=== PATIENT | male | born 1950 | race Caucasian/White ===

== ENCOUNTER 2019-09-06 14:23 | Emergency (ER) | payer MEDICARE, SELFPAY ==
[2019-09-06] VITALS (8 sets, daily range): BP systolic 125–177; BP diastolic 73–81; PULSE 73–84; RESP 14–24; TEMP 36.3–36.7; O2SAT 94–97
--- NOTE | ~2019-09-06 | XR_ITS ---
EXAMINATION: XR chest 2V DATE: 09/06/2019 15:07 INDICATION: Generalized chest pain, cough and shortness of breath TECHNIQUE: PA and lateral views of the chest were obtained. COMPARISON: Chest radiograph dated 05/01/[address] dated 06/25/2019 FINDINGS: Emphysema with hyperexpansion of lungs with increased lucency and architectural distortion in the upp er lung zones. Unchanged opacities corresponding to atelectasis/scarring at the anterolateral aspect of the left upper lung zone. Additional unchanged opacities in the lower lung zones on the frontal pr ojection resulting from bilateral paracardial fat pads better appreciated on the lateral projection. Remainder of the lungs are clear. No pulmonary edema, pleural effusion or pneumothorax. Heart size is normal. Median sternotomy wires, ostial markers and mediastinal surgical clips consistent with prior coronary artery bypass grafting. Retained epicardial pacemaker leads. Mild thoracic spondylosis. IMPRESSION: 1. Severe emphysema. 2. Stable appearance of chronic atelectasis/scarring at the left upper lung zone. Reviewed, dictated and finalized at location A. RONI MAKER IMPRESSION: 1. Severe emphysema. 2. Stable appearance of chronic atelectasis/scarring at the left upper lung zon e.
--- NOTE | 2019-09-06 14:24 | ECG_ITS ---
Measurements Intervals [place] Rate: 99 P: 96 SD: 151 QRS: 201 QRSD: 106 T: 110 QT: 324 QTc: 416 Interpretive Statements SINUS RHYTHM LIMB LEAD REVERSAL BASELINE ARTIFACT- I, II, III, AVL, AVF, V3-V6 ATYPICAL ECG Electronically Signed On 09-06-2019 16:17:55 [employer] by Anthony Redman D.O.
--- NOTE | 2019-09-06 14:46 | ED.CHESTPAIN ---
HPI - Chest Pain General Chief Complaint: Chest Pain Stated Complaint: chest pains, SOB Time Seen by Provider: 09/06/19 14:45 History of Present Illness HPI narrative: Pt is a 69 y/o male presenting to the ED c/o CP. Pt reports he started experiencing CP earlier today. Pt also reports chronic SOB and chronic cough due to a Hx of COPD, but states they have both worsened today. 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 Pt states he does have a nebulizer at home, but denies taking steroid therapy. 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 Funez no DM thyroid problems NE HTN HLD CABG no smokes Related Data Home Medications Medication Instructions Recorded Confirmed acetaminophen 325 mg capsule 325 mg PO Q6H PRN 06/12/19 arformoterol 15 mcg/2 mL solution 2 ml INHALATION DAILY 06/12/19 for nebulization budesonide 0.5 mg/2 mL suspension 0.5 mg INHALATION DAILY 06/12/19 for nebulization buspirone 15 mg tablet 15 mg PO BID 06/12/19 entecavir 0.5 mg tablet 0.5 mg PO DAILY 06/12/19 lisinopril 10 mg tablet 10 mg PO DAILY 06/12/19 sertraline 100 mg tablet 100 mg PO DAILY 06/12/19 zolpidem 10 mg tablet PO 06/12/19 Allergies Allergy/AdvReac Type Severity Reaction Status Date / Time Penicillins Allergy Mild Rash Verified 06/15/19 13:17 PMFSH Family History Family History (Updated 06/15/19 @ 13:21 by Sarah Esteban CMA) Son Heart disease Social History Social History (Updated 06/15/19 @ 13:18 by Sarah Esteban CMA) Smoking status: Former smoker Exam Narrative: Exam Narrative: General appearance: Well-developed, well-nourished Skin: Normal color Head: Normocephalic, nontraumatic Eyes: Clear conjunctiva ENT: Oropharynx normal, ears normal, nose normal Neck: Supple, nontender Chest and respiratory: Airway patent, mild respiratory distress, no accessory muscle, slight diminution of air entry bilaterally, scattered rhonchi and wheezing Heart: Regular rate/rhythm Abdomen: Soft, nontender, no organomegaly, quiet bowel sounds Vascular: Normal peripheral pulses, normal capillary refill. 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 Labs, chest x-ray, breathing treatment, Solu-Medrol 125 mg IV ordered. Further plan to follow Lab Data Result diagrams: 09/06/19 15:27 09/06/19 14:43 Labs: Lab Results 09/06/19 09/06/19 09/06/19 Range/Units 14:43 14:43 14:43 WBC 6.1 (4.5-10.0) K/mm3 RBC 4.39 L (4.6-6.20) M/mm3 Hgb 13.5 L (14.0-18.0) g/dL Hct 43.4 (42.0-52.0) % MCV 98.9 (80-100) fl MCH 30.8 (26-34) pg MCHC 31.1 L (32-36) g/dl RDW 15.4 H (11.5-14.5) % Plt Count 117 L (150-375) k/mm3 MPV 12.0 H (7.4-10.4) fl Immature Gran % (Auto) 0.5 (0-0.5) % Neut % (Auto) 71.7 (45.5-73.1) % Lymph % (Auto) 18.1 L (18.3-44.2) % Thomas % (Auto)
[2019-09-06 14:59] LABS: Basophils Percent Auto 0.5 % (0.2-1.2); Eosinophils Absolute Auto 0.1 K/mm3 (0-0.3); Hematocrit 43.4 % (42.0-52.0); Hemoglobin 13.5 g/dL (14.0-18.0); Immature Granulocyte Absolute 0.03 K/mm3 (0.00-0.031); Immature Granulocyte Percent A 0.5 % (0-0.5); Immature Platelet Fraction Pct 6.9 % (0.9-11.2); Lymphocytes Percent Auto 18.1 % (18.3-44.2); Mean Corpuscular HGB Conc 31.1 g/dl (32-36); Mean Corpuscular Hemoglobin 30.8 pg (26-34); Mean Corpuscular Volume 98.9 fl (80-100); Monocytes Absolute Auto 0.4 K/mm3 (0.1-0.6); Monocytes Percent Auto 7.2 % (2.6-8.5); Neutrophils Absolute Auto 4.4 K/mm3 (1.3-6.7); Neutrophils Percent Auto 71.7 % (45.5-73.1); Platelet Count Result 117 k/mm3 (150-375); Red Blood Count 4.39 M/mm3 (4.6-6.20); Red Cell Distribution Width 15.4 % (11.5-14.5); White Blood Count 6.1 K/mm3 (4.5-10.0)
[2019-09-06 15:06] LABS: INR 0.9; Prothrombin Time 11.7 Seconds (11.1-14.7)
[2019-09-06 15:07] LABS: Partial Thromboplastin Time 26.1 SECONDS (22.3-36.8)
[2019-09-06 15:09] LABS: Blood Urea Nitrogen 16 mg/dL (9-20); Calcium 9.3 mg/dL (8.4-10.2); Carbon Dioxide 30 mmol/L (22-30); Chloride 96 mmol/L (98-107); Estimated CRCL calculation 75 ml/min; Estimated Glomerular Filt Rate > 60; Glucose 189 mg/dL (75-110); Potassium 5.4 mmol/L (3.4-5.0); Sodium 139 mmol/L (137-145)
[2019-09-06 15:22] LABS: Troponin I < 0.012 ng/mL (0.000-0.034)
[2019-09-06] MEDS: IPRATROPIUM BR 0.02% INH SOLN 0.5 MG/2.5 ML VIAL INHALATION (15:32)
[2019-09-06] MEDS: ALBUTEROL SULFATE NEB 2.5 MG/0.5 ML INH 5 MG INHALATION (15:32)
[2019-09-06 15:33] LABS: Basophils Percent Auto 0.5 % (0.2-1.2); Eosinophils Absolute Auto 0.1 K/mm3 (0-0.3); Eosinophils Percent Auto 2.1 % (0-4.4); Hematocrit 41.2 % (42.0-52.0); Hemoglobin 12.7 g/dL (14.0-18.0); Immature Granulocyte Absolute 0.03 K/mm3 (0.00-0.031); Immature Granulocyte Percent A 0.5 % (0-0.5); Immature Platelet Fraction Pct 6.8 % (0.9-11.2); Lymphocytes Absolute Auto 0.73 K/mm3 (0.9-3.2); Mean Corpuscular HGB Conc 30.8 g/dl (32-36); Mean Corpuscular Hemoglobin 30.5 pg (26-34); Mean Platelet Volume 11.4 fl (7.4-10.4); Monocytes Absolute Auto 0.4 K/mm3 (0.1-0.6); Monocytes Percent Auto 7.1 % (2.6-8.5); Neutrophils Absolute Auto 4.7 K/mm3 (1.3-6.7); Neutrophils Percent Auto 77.8 % (45.5-73.1); Platelet Count Result 112 k/mm3 (150-375); Red Blood Count 4.16 M/mm3 (4.6-6.20); Red Cell Distribution Width 15.3 % (11.5-14.5); White Blood Count 6.1 K/mm3 (4.5-10.0)
[2019-09-06 15:38] LABS: Alveolar/Arterial O2 Gradient 36.7 mmHg; Base Excess ABG 2.3 mEq/l (+/-2.0); Carboxyhemoglobin 0.4 % THb (0-2.0); Device NASAL CANNULA; Fractional Inspired Oxygen 24 %; HCO3 ABG 28.5 mEq/l (22.0-26.0); Methemoglobin ABG 0.2 %THb (0-1.5); Modified Allen's Test Pass; Oxygen Content ABG 18.1 %vol (16.0-22.0); Oxygen Saturation ABG 94.3 % (95.0-100.0); Oxyhemoglobin 94.3 % THb (90.0-100.0); PCO2 ABG 50.6 mmHg (35.0-45.0); PO2 ABG 74.2 mmHg (80.0-100.0); PO2 FiO2 Ratio Arterial Blood 3.09 %; Reduced Hemoglobin 5.1 %THb (0-5.0); Site Drawn LEFT RADIAL; Total Hemoglobin 13.6 g/dL (12.0-18.0); pH ABG 7.368 (7.350-7.450)
[2019-09-06] MEDS: methylPREDNISolone SOD SUCC 125 MG VIAL IV PUSH (16:17)
[2019-09-06 17:58] LABS: Troponin I < 0.012 ng/mL (0.000-0.034)
== END 2019-09-06 18:34 | disposition home or self-care (01) ==
PROVIDERS: Emergency Medicine; Emergency Provider Emergency Medicine; PCP Internal Medicine
DX: J44.9 Chronic obstructive pulmonary disease, unspecified (principal); Z87.891 Personal history of nicotine dependence
CPT/HCPCS: 36415; 36600; 71046; 80048; 82375; 82805; 83050; 84484; 85025; 85055; 85610; 85730; 87804; 93005; 94640; 96374; 99284; J2930

== ENCOUNTER 2019-10-04 15:05 | Outpatient (CLI) | payer MEDICARE, SELFPAY ==
[2019-10-04 15:49] LABS: Basophils Percent Auto 0.4 % (0.2-1.2); Eosinophils Percent Auto 0.4 % (0-4.4); Hematocrit 37.8 % (42.0-52.0); Hemoglobin 11.6 g/dL (14.0-18.0); Immature Granulocyte Absolute 0.08 K/mm3 (0.00-0.031); Immature Granulocyte Percent A 1.1 % (0-0.5); Immature Platelet Fraction Pct 6.5 % (0.9-11.2); Lymphocytes Absolute Auto 1.31 K/mm3 (0.9-3.2); Lymphocytes Percent Auto 17.4 % (18.3-44.2); Mean Corpuscular HGB Conc 30.7 g/dl (32-36); Mean Corpuscular Hemoglobin 30.3 pg (26-34); Mean Corpuscular Volume 98.7 fl (80-100); Mean Platelet Volume 11.6 fl (7.4-10.4); Monocytes Absolute Auto 0.5 K/mm3 (0.1-0.6); Monocytes Percent Auto 6.1 % (2.6-8.5); Neutrophils Absolute Auto 5.6 K/mm3 (1.3-6.7); Neutrophils Percent Auto 74.6 % (45.5-73.1); Platelet Count Result 135 k/mm3 (150-375); Red Blood Count 3.83 M/mm3 (4.6-6.20); Red Cell Distribution Width 14.8 % (11.5-14.5); White Blood Count 7.5 K/mm3 (4.5-10.0)
[2019-10-04 15:57] LABS: INR 0.9; Prothrombin Time 11.6 Seconds (11.1-14.7)
[2019-10-04 16:00] LABS: Alanine Aminotransferase 28 U/L (4-50); Albumin Level 4.2 g/dL (3.5-5.1); Alkaline Phosphatase 84 U/L (38-126); Aspartate Amino Transferase 31 U/L (17-59); Bilirubin,Total 0.4 mg/dL (0.2-1.3); Blood Urea Nitrogen 18 mg/dL (9-20); Carbon Dioxide 31 mmol/L (22-30); Chloride 97 mmol/L (98-107); Cholesterol 138 mg/dL (0-200); Estimated Glomerular Filt Rate > 60; Glucose 223 mg/dL (75-110); HDL Direct 47 mg/dL; Potassium 4.6 mmol/L (3.4-5.0); Sodium 138 mmol/L (137-145); Triglycerides 146 mg/dL (<150)
[2019-10-04 16:11] LABS: LDL Cholesterol Direct 76 mg/dL
[2019-10-04 16:31] LABS: Prostate Specific Antigen 0.7 ng/mL (< OR = 4.0)
[2019-10-04 16:35] LABS: Hepatitis B Surface Antigen Positive (Negative)
[2019-10-04 17:05] LABS: Hepatitis B Surface Anti Res Negative
[2019-10-07 10:07] LABS: Hepatitis B DNA PCR <1.00 Log IU/mL; Hepatitis B DNA PCR <10 IU/mL
[2019-10-09 05:52] LABS: Alpha-1-Antitrypsin, QN 189 mg/dL (83-199)
== END 2019-10-04 15:06 | disposition home or self-care (01) ==
LOC: ANHLAB 15:15
PROVIDERS: Internal Medicine Gastroenterology; PCP Internal Medicine; Visit Provider Internal Medicine
DX: E78.5 Hyperlipidemia, unspecified (principal); Z12.5 Encounter for screening for malignant neoplasm of prostate; I10 Essential (primary) hypertension; Z79.899 Other long term (current) drug therapy; C22.0 Liver cell carcinoma; B18.1 Chronic viral hepatitis B without delta-agent
CPT/HCPCS: 36415; 80053; 80061; 82103; 84153; 85025; 85055; 85610; 86706; 87340; 87517; G0103

== ENCOUNTER 2019-10-15 15:54 | Emergency (ER) | payer MEDICARE, SELFPAY ==
--- NOTE | ~2019-10-15 | XR_ITS ---
EXAMINATION: XR chest 2V DATE: 10/15/2019 17:02 INDICATION: Shortness of breath, chest pressure TECHNIQUE: PA and lateral views of the chest are obtained. COMPARISON: 09/06/2019 FINDINGS: The lungs are hyperinflated. There are chronic areas of scarring in the left lung. A patchy opacity is seen in the left lung apex. The heart size is normal. There is no pleural effusion or pne umothorax. Median sternotomy wires and mediastinal surgical clips are seen, likely from prior coronar y artery bypass grafting. There is moderate thoracic spondylosis. IMPRESSION: 1. Patchy opacity of the left upper lobe, consistent with atelectasis versus pneumonia. Reviewed, dictated and finalized at location A. IMPRESSION: 1. Patchy opacity of the left upper lobe, consistent with atelectasis versus pn eumonia.
--- NOTE | 2019-10-15 16:08 | ECG_ITS ---
Measurements Intervals [place] Rate: 80 P: 49 AR: 154 QRS: -17 QRSD: 98 T: 79 QT: 341 QTc: 395 Interpretive Statements SINUS RHYTHM DELAYED PRECORDIAL R/S TRANSITION BORDERLINE ST-T WAVE ABNORMALITY- LATERAL LEADS BASELINE ARTIFACT- I, II, III, AVR, AVL, AVF, V6 BORDERLINE ECG Electronically Signed On 10-15-2019 17:05:39 CDT by Anthony Redman D.O.
--- NOTE | 2019-10-15 16:13 | ED.GENADULT ---
HPI - General Adult General Stated complaint: difficulty breathing Time Seen by Provider: 10/15/19 16:13 Related Data Home Medications Medication Instructions Recorded Confirmed acetaminophen 325 mg capsule 325 mg PO Q6H PRN 06/12/19 arformoterol 15 mcg/2 mL solution 2 ml INHALATION DAILY 06/12/19 for nebulization budesonide 0.5 mg/2 mL suspension 0.5 mg INHALATION DAILY 06/12/19 for nebulization buspirone 15 mg tablet 15 mg PO BID 06/12/19 entecavir 0.5 mg tablet 0.5 mg PO DAILY 06/12/19 sertraline 100 mg tablet 100 mg PO DAILY 06/12/19 zolpidem 10 mg tablet PO 06/12/19 Allergies Allergy/AdvReac Type Severity Reaction Status Date / Time Penicillins Allergy Mild Rash Verified 06/15/19 13:17 [facility] Family History Family History (Updated 06/15/19 @ 13:21 by Sarah Esteban CMA) Son Heart disease Social History Social History (Updated 06/15/19 @ 13:18 by Sarah Esteban CMA) Smoking status: Former smoker Discharge Plan Discharge Prescriptions: No Action buspirone 15 mg tablet 15 mg PO BID RF: 0 entecavir 0.5 mg tablet 0.5 mg PO DAILY RF: 0 sertraline 100 mg tablet 100 mg PO DAILY RF: 0 acetaminophen [Tylenol] 325 mg capsule 325 mg PO Q6H PRNRF: 0 zolpidem 10 mg tablet PO RF: 0 Brovana 15 mcg/2 mL solution for nebulization 2 ml INHALATION DAILY RF: 0 budesonide 0.5 mg/2 mL suspension for nebulization 0.5 mg INHALATION DAILY RF: 0 albuterol sulfate 2.5 mg /3 mL (0.083 %) solution for nebulization 2.5 mg INHALATION Q4-6H PRN (Reason: shortness of breath or wheezing) Qty: 180 RF: 3 atorvastatin 80 mg tablet 80 mg PO DAILY Qty: 90 RF: 1 ipratropium bromide 0.02 % solution 2.5 ml INHALATION QID Qty: 300 RF: 3 albuterol sulfate [ProAir HFA] 90 mcg/actuation HFA aerosol inhaler 2 inhalation INHALATION Q4-6H PRN (Reason: shortness of breath or wheezing) Qty: 8.5 RF: 3 prednisone 20 mg tablet 40 mg PO DAILY Qty: 10 RF: 0 azithromycin [Zithromax Z-Milton] 250 mg tablet 250 mg PO DIRECTED Qty: 6 RF: 0 lisinopril 10 mg tablet 10 mg PO DAILY Qty: 90 RF: 1
--- NOTE | 2019-10-15 16:21 | ED.SOB ---
HPI - SOB/Dyspnea General Chief Complaint: Shortness of Breath/Dyspnea Stated Complaint: difficulty breathing Time Seen by Provider: 10/15/19 16:18 Source: patient Mode of arrival: ambulatory Limitations: no limitations History of Present Illness HPI Narrative: A 69 y/o male, with a PMHx of COPD, presents to the ED with c/o increased SOB. Pt states that Dr. Funez prescribed him Prednisone and Erythromycin at the beginning of the month. This alleviated the pt's SOB for a few days, but his symptoms have worsened since. Pt is normally on 2L of oxygen. He denies a cough, fever, chills, and any urinary problems. Pertinent past history: COPD Timing: progressively worsening Known history of: COPD Related Data Home Medications Medication Instructions Recorded Confirmed acetaminophen 325 mg capsule 325 mg PO Q6H PRN 06/12/19 arformoterol 15 mcg/2 mL solution 2 ml INHALATION DAILY 06/12/19 for nebulization budesonide 0.5 mg/2 mL suspension 0.5 mg INHALATION DAILY 06/12/19 for nebulization buspirone 15 mg tablet 15 mg PO BID 06/12/19 entecavir 0.5 mg tablet 0.5 mg PO DAILY 06/12/19 sertraline 100 mg tablet 100 mg PO DAILY 06/12/19 zolpidem 10 mg tablet PO 06/12/19 Allergies Allergy/AdvReac Type Severity Reaction Status Date / Time Penicillins Allergy Mild Rash Verified 06/15/19 13:17 Review of Systems Review of Systems: All systems reviewed & are unremarkable except as noted in HPI and below Constitutional: Constitutional: Denies chills and Denies fever(s) Respiratory: Respiratory: Denies cough and Reports dyspnea Genitourinary: Comments: Denies: urinary problems [facility] Past Medical History Medical History 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 Anxiety Arthritis Back pain Bronchitis CAD (coronary artery disease) Cirrhosis Depression GERD (gastroesophageal reflux disease) Hepatitis B History of blood transfusion History of chemotherapy HLD (hyperlipidemia) HTN (hypertension) Kidney stone Leg fracture, left Liver tumor Pneumonia Rectal polyp Sinus problem Sleep apnea Surgical History Surgical History H/O hemorrhoidectomy H/O inguinal hernia repair History of cardiac cath History of carpal tunnel release and ulnar release Hx of CABG x3 Family History Family History Son Heart disease Social History Social History Smoking status: Former smoker Comments PSHx: left leg Fx repair PCP: Dr. Fallon Exam Narrative: Exam Narrative: GENERAL: Well-appearing, well-nourished, and in no acute distress. HEAD: Normocephalic, atraumatic. EYES: PERRLA and EOMI. ENT: Nares clear, no rhinorrhea or epistaxis. Mucous membranes moist. NECK: Supple. CHEST: Clear to auscultation. No respiratory distress. bilateral mild wheeze HEART: Regular rate and rhythm. No murmur heard. Normal peripheral pulses. ABDOMEN: Soft, , normal active bowel sounds. EXTREMITIES: Normal range of motion. No edema. SKIN: Warm, dry, no rash. NEURO: No focal deficits. Alert and oriented x3. PSYCH: Normal mood and affect. Course Course Emergency Course: Inform patient about the lab work, chest x-ray findings. Advised him to continue his home medication. We will start him on steroids. Advised him to continue his home medication and follow-up with Dr. Rivas MDM - SOB/Dyspnea Lab Data Result diagrams: 10/15/19 16:54 10/15/19 16:54 Labs: Lab Results 10/15/19 10/15/19 Range/Units 16:54 16:54 WBC 7.2 (4.5-10.0) K/mm3 RBC 4.06 L (4.6-6.20) M/mm3 Hgb 12.6 L (14.0-18.0) g/dL Hct 40.0 L (42.0-52.0) % MCV 98.5 (80-100) fl MCH 31.0 (26-34) pg MCHC 31.5 L (32-36) g/dl RDW 15.9 H (11.5-14.5) % Plt Count 96 L (150-375) k/mm3 MPV 12.8 H (
[2019-10-15 17:00] LABS: Basophils Percent Auto 0.1 % (0.2-1.2); Eosinophils Absolute Auto 0.1 K/mm3 (0-0.3); Eosinophils Percent Auto 0.7 % (0-4.4); Hemoglobin 12.6 g/dL (14.0-18.0); Immature Granulocyte Absolute 0.05 K/mm3 (0.00-0.031); Immature Granulocyte Percent A 0.7 % (0-0.5); Lymphocytes Absolute Auto 0.79 K/mm3 (0.9-3.2); Mean Corpuscular HGB Conc 31.5 g/dl (32-36); Mean Corpuscular Volume 98.5 fl (80-100); Mean Platelet Volume 12.8 fl (7.4-10.4); Monocytes Absolute Auto 0.5 K/mm3 (0.1-0.6); Monocytes Percent Auto 6.4 % (2.6-8.5); Neutrophils Absolute Auto 5.8 K/mm3 (1.3-6.7); Neutrophils Percent Auto 81.1 % (45.5-73.1); Platelet Count Result 96 k/mm3 (150-375); Red Blood Count 4.06 M/mm3 (4.6-6.20); Red Cell Distribution Width 15.9 % (11.5-14.5); White Blood Count 7.2 K/mm3 (4.5-10.0)
[2019-10-15 17:10] LABS: Blood Urea Nitrogen 26 mg/dL (9-20); Calcium 9.6 mg/dL (8.4-10.2); Carbon Dioxide 28 mmol/L (22-30); Chloride 101 mmol/L (98-107); Estimated Glomerular Filt Rate > 60; Glucose 212 mg/dL (75-110); Sodium 135 mmol/L (137-145)
[2019-10-15] MEDS: methylPREDNISolone SOD SUCC 125 MG VIAL IV PUSH (18:40)
[2019-10-15 19:10] VITALS: BP 151/72; PULSE 97; RESP 18; O2SAT 95
== END 2019-10-15 19:11 | disposition home or self-care (01) ==
PROVIDERS: Emergency Provider Family Medicine; PCP Internal Medicine
DX: J44.9 Chronic obstructive pulmonary disease, unspecified (principal); I25.10 Atherosclerotic heart disease of native coronary artery without angina pectoris; K74.60 Unspecified cirrhosis of liver; K21.9 Gastro-esophageal reflux disease without esophagitis; E78.5 Hyperlipidemia, unspecified; I10 Essential (primary) hypertension; G47.30 Sleep apnea, unspecified; F41.9 Anxiety disorder, unspecified; M19.90 Unspecified osteoarthritis, unspecified site; F32.9 Major depressive disorder, single episode, unspecified; Z95.1 Presence of aortocoronary bypass graft; Z86.19 Personal history of other infectious and parasitic diseases; Z87.442 Personal history of urinary calculi; Z99.81 Dependence on supplemental oxygen; R94.31 Abnormal electrocardiogram [ECG] [EKG]
CPT/HCPCS: 36415; 71046; 80048; 85025; 93005; 96374; 99284; J2930

== ENCOUNTER 2020-01-10 09:54 | Outpatient (CLI) | payer MEDICARE, SELFPAY ==
--- NOTE | ~2020-01-10 | CT_ITS ---
EXAMINATION:CT chest wo con DATE: 01/10/2020 10:32 INDICATION: Left lung mass. TECHNIQUE: Computed tomography (CT) of the chest was performed without intravenous contrast. Automate d exposure control and iterative reconstruction technique were employed. The dose-length product (DLP ) was 670.98 mGy-cm. COMPARISON: Chest CT 06/25/2019, chest 2 views 10/15/2019 FINDINGS: There is severe emphysema. There are areas of scarring in the lungs bilaterally. There are chronic airspace opacities in peripheral left upper lobe with volume loss and architectural distortio n, consistent with scarring. Calcified left lung nodules and calcified left hilar lymph nodes are con sistent with old granulomatous disease. No pleural effusion. The heart size is normal. There are avel nary artery calcifications. There are changes of coronary artery bypass grafting. No pericardial effu panfilo. There is surface nodularity of the liver, consistent with cirrhosis. There is a 4.0 cm dense ma ss in left hepatic lobe, likely changes of chemoembolization. Calcifications in the spleen are consis tent with old granulomatous disease. There is mild thoracic spondylosis. IMPRESSION: 1. Severe emphysema with stable chronic scarring in left upper lobe. 2. Cirrhosis of the liver. Reviewed, dictated and finalized at location A.
== END 2020-01-10 09:55 | disposition home or self-care (01) ==
LOC: ANHIMG 10:09
PROVIDERS: PCP Internal Medicine; Visit Provider Nurse Practitioner
DX: R91.8 Other nonspecific abnormal finding of lung field (principal); I10 Essential (primary) hypertension; Z79.899 Other long term (current) drug therapy; E78.5 Hyperlipidemia, unspecified; Z12.5 Encounter for screening for malignant neoplasm of prostate; J43.9 Emphysema, unspecified; K74.60 Unspecified cirrhosis of liver
CPT/HCPCS: 71250

== ENCOUNTER 2020-02-11 20:28 | Emergency (ER) | payer MEDICARE, SELFPAY ==
--- NOTE | ~2020-02-11 | XR_ITS ---
EXAMINATION: XR chest 2V DATE: 02/11/2020 21:31 INDICATION: Chest tightness. Shortness of breath. TECHNIQUE: Frontal and lateral views of the chest were obtained. COMPARISON: Chest 2 views 10/15/2019, chest CT 01/10/2020 FINDINGS: There are lucencies in the lungs, consistent with emphysema. There are chronic airspace opa cities at left lung apex, consistent with scarring. There is mild atelectasis in left lower lung zone . No pleural effusion or pneumothorax. The heart size is normal. Median sternotomy wires and mediasti nal surgical clips are seen, likely from prior coronary artery bypass grafting. Retained epicardial p acer wires are noted. IMPRESSION: 1. Severe emphysema. 2. Chronic scarring at left lung apex and mild atelectasis in left lower lung zone. Reviewed, dictated and finalized at location A. IMPRESSION: 1. Severe emphysema. 2. Chronic scarring at left lung apex and mild atelectasis in left lower lung z one.
--- NOTE | 2020-02-11 20:36 | ECG_ITS ---
Measurements Intervals [place] Rate: 109 P: -74 ID: 129 QRS: -8 QRSD: 110 T: 52 QT: 318 QTc: 428 Interpretive Statements ATRIAL TACHYCARDIA WITH RAPID VENTRICULAR RESPONSE VENTRICULAR PREMATURE COMPLEX DELAYED PRECORDIAL R/S TRANSITION LOW QRS VOLTAGE IN LIMB LEADS MINIMAL Q WAVES- INFERIOR LEADS BORDERLINE T WAVE ABNORMALITY- LAT/HIGH LAT LEADS BASELINE WANDER- V1-V4, V6 ABNORMAL ECG Electronically Signed On 02-12-2020 7:56:55 CDT by Anthony Redman D.O.
[2020-02-11 20:37] VITALS: BP 165/73; PULSE 94; RESP 22; TEMP 35.9; O2SAT 96
[2020-02-11 20:54] LABS: Basophils Percent Auto 0.2 % (0.2-1.2); Eosinophils Absolute Auto 0.1 K/mm3 (0-0.3); Hematocrit 41.2 % (42.0-52.0); Hemoglobin 13.4 g/dL (14.0-18.0); Immature Granulocyte Absolute 0.03 K/mm3 (0.00-0.031); Immature Granulocyte Percent A 0.5 % (0-0.5); Immature Platelet Fraction Pct 7.4 % (0.9-11.2); Lymphocytes Absolute Auto 0.65 K/mm3 (0.9-3.2); Lymphocytes Percent Auto 11.1 % (18.3-44.2); Mean Corpuscular HGB Conc 32.5 g/dl (32-36); Mean Corpuscular Hemoglobin 30.7 pg (26-34); Mean Corpuscular Volume 94.5 fl (80-100); Mean Platelet Volume 11.9 fl (7.4-10.4); Monocytes Absolute Auto 0.3 K/mm3 (0.1-0.6); Monocytes Percent Auto 5.1 % (2.6-8.5); Neutrophils Absolute Auto 4.8 K/mm3 (1.3-6.7); Neutrophils Percent Auto 82.1 % (45.5-73.1); Platelet Count Result 118 k/mm3 (150-375); Red Blood Count 4.36 M/mm3 (4.6-6.20); Red Cell Distribution Width 14.1 % (11.5-14.5); White Blood Count 5.9 K/mm3 (4.5-10.0)
[2020-02-11 21:04] LABS: Blood Urea Nitrogen 13 mg/dL (9-20); Calcium 9.6 mg/dL (8.4-10.2); Carbon Dioxide 27 mmol/L (22-30); Chloride 100 mmol/L (98-107); Estimated Glomerular Filt Rate > 60; Glucose 157 mg/dL (75-110); Potassium 4.6 mmol/L (3.4-5.0); Sodium 137 mmol/L (137-145)
[2020-02-11 21:16] LABS: Troponin I < 0.012 ng/mL (0.000-0.034)
[2020-02-11 23:00] VITALS: BP 142/83; PULSE 86; RESP 19; O2SAT 90
[2020-02-11 23:53] LABS: Alveolar/Arterial O2 Gradient 18.2 mmHg; Base Excess ABG 2.9 mEq/l (+/-2.0); Carboxyhemoglobin 0.7 % THb (0-2.0); Fractional Inspired Oxygen 28 %; HCO3 ABG 28.4 mEq/l (22.0-26.0); Methemoglobin ABG 0.2 %THb (0-1.5); Oxygen Content ABG 19.6 %vol (16.0-22.0); Oxygen Saturation ABG 98.5 % (95.0-100.0); Oxyhemoglobin 97.3 % THb (90.0-100.0); PCO2 ABG 46.5 mmHg (35.0-45.0); PO2 ABG 126.6 mmHg (80.0-100.0); PO2 FiO2 Ratio Arterial Blood 4.52 %; Reduced Hemoglobin 1.8 %THb (0-5.0); Total Hemoglobin 14.2 g/dL (12.0-18.0); pH ABG 7.403 (7.350-7.450)
[2020-02-11 23:54] LABS: Device NASAL CANNULA; Modified Allen's Test Pass; Site Drawn LEFT RADIAL
[2020-02-12] VITALS: BP 128/75; PULSE 88; RESP 17; O2SAT 95
--- NOTE | 2020-02-12 00:10 | ED.SOB ---
HPI - SOB/Dyspnea General Chief Complaint: Shortness of Breath/Dyspnea Stated Complaint: sob/cp Time Seen by Provider: 02/11/20 23:23 Source: patient Mode of arrival: ambulatory Limitations: no limitations History of Present Illness HPI Narrative: This patient is a 69 year old male with history of COPD , home Oxygen 2L NC who presents for evaluation of shortness of breath. PAtient states he has been short of breath for a couple of days. He reports he has history of this and it usually gets better after a few days of steroids and antibiotics. He denies worsening cough, fever, chest pain , nausea or vomiting. He also denies abdominal pain. His last bowel movement was today. MD elicited complaint: shortness of breath Known history of: COPD Related Data Home Medications Medication Instructions Recorded Confirmed acetaminophen 325 mg capsule 325 mg PO Q6H PRN 06/12/19 01/29/20 arformoterol 15 mcg/2 mL solution 2 ml INHALATION DAILY 06/12/19 01/29/20 for nebulization budesonide 0.5 mg/2 mL suspension 0.5 mg INHALATION DAILY 06/12/19 01/29/20 for nebulization buspirone 15 mg tablet 15 mg PO BID 06/12/19 01/29/20 entecavir 0.5 mg tablet 0.5 mg PO DAILY 06/12/19 01/29/20 sertraline 100 mg tablet 100 mg PO DAILY 06/12/19 01/29/20 zolpidem 10 mg tablet PO 06/12/19 01/29/20 Allergies Allergy/AdvReac Type Severity Reaction Status Date / Time Penicillins Allergy Mild Rash Verified 01/29/20 09:38 Review of Systems Review of Systems: All systems reviewed & are unremarkable except as noted in HPI and below Constitutional: Constitutional: Denies chills and Denies fever(s) Cardiovascular: Cardiovascular: Denies chest pain Respiratory: Respiratory: Denies cough, Reports dyspnea and Denies wheezing Gastrointestinal: Gastrointestinal: Denies abdominal pain, Denies diarrhea, Denies nausea and Denies vomiting Musculoskeletal: Musculoskeletal: Denies back pain PMFSH Past Medical History Medical History 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 Anxiety Arthritis Back pain Bronchitis CAD (coronary artery disease) Cirrhosis Depression GERD (gastroesophageal reflux disease) Hepatitis B History of blood transfusion History of chemotherapy HLD (hyperlipidemia) HTN (hypertension) Impaired glucose tolerance Insomnia Kidney stone Leg fracture, left Liver tumor Pneumonia Rectal polyp Screening for cardiovascular condition Screening for colon cancer Sinus problem Sleep apnea Urinary leakage Surgical History Surgical History H/O hemorrhoidectomy H/O inguinal hernia repair History of cardiac cath History of carpal tunnel release and ulnar release Hx of CABG x3 Social History Social History Smoking status: Former smoker Gender identity (if verbalized by the patient): Male Exam Narrative: Exam Narrative: GENERAL: Well-appearing, well-nourished, and in no acute distress. HEAD: Normocephalic, atraumatic EYES: PERRLA and EOMI, conjunctiva clear without discharge THROAT:Mucous membranes moist, NECK: Supple, without lymphadenopathy or mass HEART: Regular rate and rhythm. No murmur heard. Normal peripheral pulses. ABDOMEN: Soft, nontender, nondistended, normal active bowel sounds. No masses. No rebound or guarding, No organomegaly. EXTREMITIES: No edema, normal strength with full range of motion. SKIN: Warm, dry, normal color without rash NEURO: Alert and oriented x3. CN 2-12 grossly intact. No focal deficits. PSYCH: Normal mood and affect. Resp: Effort & Inspection: normal respiratory effort, no retractions, not tachypneic and no use of accessory muscles Auscultation: diminished lung sounds bilateral Course Reevaluation(s) Reevaluation #1: Simon is no acute distress. HE will be treated for COPD exacerbation. Date: 02/11
[2020-02-12] MEDS: methylPREDNISolone SOD SUCC 125 MG VIAL IV PUSH (00:22)
[2020-02-12 00:30] VITALS: BP 117/57; PULSE 81; RESP 18; O2SAT 94
[2020-02-12] MEDS: AZITHROMYCIN 250 MG TABLET 500 MG PO (00:30)
[2020-02-12 14:52] LABS: SARS-CoV-2 RNA PCR Negative
== END 2020-02-12 00:30 | disposition home or self-care (01) ==
PROVIDERS: Emergency Provider General Practice; PCP Internal Medicine
DX: Z20.828 Contact with and (suspected) exposure to other viral communicable diseases (principal); J44.1 Chronic obstructive pulmonary disease with (acute) exacerbation; R00.0 Tachycardia, unspecified; F41.9 Anxiety disorder, unspecified; M19.90 Unspecified osteoarthritis, unspecified site; I25.10 Atherosclerotic heart disease of native coronary artery without angina pectoris; F32.9 Major depressive disorder, single episode, unspecified; K74.60 Unspecified cirrhosis of liver; K21.9 Gastro-esophageal reflux disease without esophagitis; E78.5 Hyperlipidemia, unspecified; I10 Essential (primary) hypertension; G47.30 Sleep apnea, unspecified
CPT/HCPCS: 36415; 36600; 71046; 80048; 82375; 82805; 83050; 84484; 85025; 85055; 87635; 93005; 96374; 99284; A9270; C9803; J2930; U0003

== ENCOUNTER 2020-03-24 16:36 | Inpatient (IN) | payer MEDICARE, SELFPAY ==
--- NOTE | ~2020-03-24 | CT_ITS ---
EXAMINATION: CTA chest PE protocol DATE: 03/26/2020 15:46 INDICATION: COVID-19 pneumonia. Acute and chronic respiratory failure. TECHNIQUE: Computed tomography angiography (CTA) of the chest was performed with 100 mL Omnipaque-350 intravenous contrast timed to evaluate the pulmonary arteries. Coronal maximum intensity projection 3D-reconstructions were created by the technologist. Automated exposure control and iterative reconst ruction technique were employed. The dose-length product was 808.64 mGy-cm. COMPARISON: Chest CT 01/10/2020, 06/25/2019 FINDINGS: There is severe emphysema. There are peripheral groundglass opacities in right middle lobe, lingula, and left lower lobe. There are peripheral airspace and groundglass opacities in right lower lobe. There is a chronic 5 mm nodule in right lower lobe, consistent with granulomatous disease. Oc cified pulmonary nodules and calcified hilar and mediastinal lymph nodes are consistent with old gran ulomatous disease. There are chronic peripheral airspace opacities with volume loss in left upper lob e, consistent with scarring. No pleural effusion. The heart size is normal. There are coronary artery calcifications. There are changes of coronary artery bypass grafting. There is a nodular liver surfa ce contour, consistent with cirrhosis. There is a 4.0 cm hyperdense mass in left hepatic lobe that ma y be changes of chemoembolization. There are gallstones in the gallbladder, which is normal in size. Calcifications in the spleen are consistent with old granulomatous disease. There is at least mild sp lenomegaly, consistent with portal venous hypertension. There is no pulmonary embolus. There is mild thoracic spondylosis. IMPRESSION: 1. No pulmonary embolus. 2. Bilateral inferior lung disease, consistent with pneumonia. 3. Severe emphysema. 4. Cirrhosis of the liver with portal venous hypertension. 5. Stable 4.0 cm hyperdense mass in left hepatic lobe, likely changes of chemoembolization. Reviewed, dictated and finalized at location B. IMPRESSION: 1. No pulmonary embolus. 2. Bilateral inferior lung disease, consistent with pneumonia. 3. Severe emphysema. 4. Cirrhosis of the liver with portal venous hypertension. 5. Stable 4.0 cm hyperdense mass in left hepatic lobe, likely changes of chemoe mbolization.
--- NOTE | ~2020-03-24 | XR_ITS ---
XR chest 1V portable 03/24/2020 18:09 Indication: Shortness of breath Procedure: AP portable chest Comparison: Comparison to multiple prior studies sequentially, with oldest reviewed study dated 08/2018. Findings: Heart size normal. Heart size within normal limits. There is bilateral airspace disease wit h chronic left apical pleural thickening/scarring. Status post median sternotomy for CABG. No pleural effusion or pneumothorax. Impression: 1: Ill-defined bilateral airspace disease which may represent edema and/or pneumonia. 2: Chronic left apical pleural thickening/scarring. Reviewed, dictated and finalized at location A. Impression: 1: Ill-defined bilateral airspace disease which may represent edema and/or pneu monia. 2: Chronic left apical pleural thickening/scarring.
--- NOTE | ~2020-03-24 | CT_ITS ---
EXAMINATION: CT brain wo con DATE: 03/24/2020 21:17 INDICATION: Altered mental status. Status post fall. TECHNIQUE: Computed tomography (CT) of the head was performed without intravenous contrast. The dose- length product was 605.33 mGy-cm. Automated exposure control and iterative reconstruction technique w ere employed. COMPARISON: CT dated 12/07/2018 FINDINGS: Generalized atrophy. Mild generalized atrophy. There are scattered mild periventricular and subcortical white matter changes, most likely related to small vessel ischemic disease (microangiopa thy). No acute intracranial hemorrhage, infarction, mass or mass effect. There is carotid atheroscler osis. There is intracranial atherosclerosis. Paranasal sinuses and mastoids are pneumatized. No depre ssed skull fractures. IMPRESSION: 1. No acute intracranial abnormality. 2: Chronic age-related findings. Reviewed, dictated and finalized at location A.
[2020-03-24 16:44] VITALS: PULSE 120; RESP 32; TEMP 37.1; O2SAT 94
--- NOTE | 2020-03-24 17:17 | ECG_ITS ---
Measurements Intervals [place] Rate: 124 P: MA: 0 QRS: -12 QRSD: 96 T: 31 QT: 308 QTc: 443 Interpretive Statements ATRIAL TACHYCARDIA WITH RAPID VENTRICULAR RESPONSE BORDERLINE T WAVE ABNORMALITY- HIGH LATERAL LEADS BASELINE ARTIFACT- I, II, III, AVF, V2, V4-V6 ABNORMAL ECG Electronically Signed On 03-24-2020 18:25:42 CDT by Anthony Redman D.O.
--- NOTE | 2020-03-24 17:59 | ED.GENADULT ---
HPI - General Adult General Chief complaint: Shortness of Breath/Dyspnea Stated complaint: SOB/WEAKNESS Time Seen by Provider: 03/24/20 16:59 Source: patient and family History of Present Illness HPI narrative: Patient is a 70 y/o male complaining of moderate shortness of breath for 1 week. He states that he has COPD and he is on home O2. He has chronic cough. He denies any chest pain or fever. His SOB is worse with activity. states that he seems more confused than usual. Related Data Home Medications Medication Instructions Recorded Confirmed acetaminophen 325 mg capsule 325 mg PO Q6H PRN 06/12/19 01/29/20 budesonide 0.5 mg/2 mL suspension 0.5 mg INHALATION DAILY 06/12/19 01/29/20 for nebulization buspirone 15 mg tablet 15 mg PO BID 06/12/19 01/29/20 entecavir 0.5 mg tablet 0.5 mg PO DAILY 06/12/19 01/29/20 sertraline 100 mg tablet 100 mg PO DAILY 06/12/19 01/29/20 zolpidem 10 mg tablet PO 06/12/19 01/29/20 Allergies Allergy/AdvReac Type Severity Reaction Status Date / Time Penicillins Allergy Mild Rash Verified 01/29/20 09:38 Review of Systems Constitutional: Constitutional: Denies chills, Denies fever(s), Denies headache(s) and Denies weakness Eyes: Eyes: Denies blurry vision ENT: Denies headache(s) and Denies neck pain Cardiovascular: Cardiovascular: Denies chest pain and Reports dyspnea Respiratory: Respiratory: Reports cough and Reports dyspnea Gastrointestinal: Gastrointestinal: Denies abdominal pain, Denies diarrhea, Denies nausea and Denies vomiting Genitourinary: Genitourinary: Denies hematuria and Denies dysuria Musculoskeletal: Musculoskeletal: Denies back pain and Denies neck pain Neurologic: Denies headache(s) and Denies weakness [facility] Past Medical History Medical History 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 Anxiety Arthritis Back pain Bronchitis CAD (coronary artery disease) Cirrhosis Depression GERD (gastroesophageal reflux disease) Hepatitis B History of blood transfusion History of chemotherapy HLD (hyperlipidemia) HTN (hypertension) Impaired glucose tolerance Insomnia Kidney stone Leg fracture, left Liver tumor Pneumonia Rectal polyp Screening for cardiovascular condition Screening for colon cancer Sinus problem Sleep apnea Urinary leakage Surgical History Surgical History H/O hemorrhoidectomy H/O inguinal hernia repair History of cardiac cath History of carpal tunnel release and ulnar release Hx of CABG x3 Family History Family History Son Heart disease Social History Social History Smoking status: Former smoker Gender identity (if verbalized by the patient): Male Exam Const: General: no acute distress and well developed Orientation/consciousness: oriented to person, oriented to place, oriented to time and patient oriented x3 HENMT: Head: normocephalic Ears: external ears normal General nose exam: Normal external nose present Eyes: General: appearance normal, both eyes and all related structures Conjunctivae: conjunctivae normal Neck: Neck: normal visual inspection and full ROM Chest: Chest palpation & inspection: normal inspection of the chest and no tenderness Resp: Effort & Inspection: normal respiratory effort Auscultation: clear to auscultation bilaterally Cardio: Rate: regular rate Rhythm: regular rhythm GI: GI Palp: No abdominal tenderness and Yes Soft to palpation Skin: General skin exam: normal color and turgor normal Neuro: General: oriented to person, oriented to place, oriented to time and patient oriented x3 Cognition (Neuro): normal cognition Extrem: General: normal to inspection, full ROM and no pedal edema Psych: Appearance: grossly normal Mental Status: mental status grossly n
[2020-03-24 18:21] LABS: Basophils Percent Auto 0.2 % (0.2-1.2); Hematocrit 38.9 % (42.0-52.0); Hemoglobin 12.8 g/dL (14.0-18.0); Immature Granulocyte Absolute 0.11 K/mm3 (0.00-0.031); Lymphocytes Absolute Auto 0.39 K/mm3 (0.9-3.2); Lymphocytes Percent Auto 7.2 % (18.3-44.2); Mean Corpuscular HGB Conc 32.9 g/dl (32-36); Mean Corpuscular Hemoglobin 30.4 pg (26-34); Mean Corpuscular Volume 92.4 fl (80-100); Mean Platelet Volume 11.6 fl (7.4-10.4); Monocytes Absolute Auto 0.6 K/mm3 (0.1-0.6); Monocytes Percent Auto 10.3 % (2.6-8.5); Neutrophils Absolute Auto 4.4 K/mm3 (1.3-6.7); Neutrophils Percent Auto 80.3 % (45.5-73.1); Platelet Count Result 148 k/mm3 (150-375); Red Blood Count 4.21 M/mm3 (4.6-6.20); Red Cell Distribution Width 15.5 % (11.5-14.5); White Blood Count 5.4 K/mm3 (4.5-10.0)
[2020-03-24 18:29] LABS: Alveolar/Arterial O2 Gradient 151.5 mmHg; Base Excess ABG -2.7 mEq/l (+/-2.0); Fractional Inspired Oxygen 36 %; HCO3 ABG 21.7 mEq/l (22.0-26.0); Oxygen Content ABG 16.4 %vol (16.0-22.0); PCO2 ABG 36.6 mmHg (35.0-45.0); PO2 ABG 62.7 mmHg (80.0-100.0); PO2 FiO2 Ratio Arterial Blood 1.74 %; Total Hemoglobin 12.8 g/dL (12.0-18.0); pH ABG 7.391 (7.350-7.450)
[2020-03-24 18:30] LABS: Device NASAL CANNULA; Modified Allen's Test Pass; Site Drawn LEFT RADIAL
[2020-03-24 18:35] LABS: Anion Gap 11 mmol/L (8-16); Blood Urea Nitrogen 32 mg/dL (9-20); Calcium 8.3 mg/dL (8.4-10.2); Carbon Dioxide 24 mmol/L (22-30); Chloride 98 mmol/L (98-107); Estimated CRCL calculation 63 ml/min; Estimated Glomerular Filt Rate > 60; Glucose 184 mg/dL (75-110); Potassium 4.4 mmol/L (3.4-5.0); Sodium 133 mmol/L (137-145)
[2020-03-24 18:45] LABS: NT Pro B Type Natriuretic Pept 224 PG/ML (5-100); Troponin I 0.018 ng/mL (0.000-0.034)
[2020-03-24] MEDS: methylPREDNISolone SOD SUCC 125 MG VIAL IV PUSH (18:55)
[2020-03-24 18:56] VITALS: BP 130/70; PULSE 111; RESP 20; O2SAT 94
[2020-03-24 21:31] VITALS: BP 138/75; PULSE 109; RESP 20; O2SAT 95
[2020-03-24 21:46] VITALS: BP 132/72; PULSE 105; RESP 18; O2SAT 94
[2020-03-24 22:10] VITALS: BP 125/80; PULSE 111; RESP 24; TEMP 36.7; O2SAT 96; BMI 32.8
--- NOTE | 2020-03-24 22:21 | PC.NURSE ---
This patient, Chester Banks Jr., was admitted to [facility] Surg Room 332-01. Patient/family oriented to hospital policies and general routines including ID bracelet, bed and alarms, visiting hours, pain management, procedures, bathroom and other care routines, personal items, smoking policy, room service/diet, and visiting hours. Valuables list has been completed. Information on how to activate the Rapid Response Team has been discussed. Patient/Family are encouraged to report perceived risks to care and to ask questions if they do not understand what they are told or what they should do.
[2020-03-24 22:55] LABS: Troponin I 0.024 ng/mL (0.000-0.034)
[2020-03-25] VITALS (10 sets, daily range): BP systolic 101–134; BP diastolic 61–80; PULSE 80–110; RESP 12–20; TEMP 36.3–36.6; O2SAT 91–96
[2020-03-25 00:37] LABS: Troponin I 0.027 ng/mL (0.000-0.034)
--- NOTE | 2020-03-25 05:18 | PM.IMHP ---
H&P: HPI History of Present Illness Date/Time: 03/25/20 05:18 Chief complaint: copd exacerbation Narrative: Chester Banks Jr. is a 70 year old male With a past medical history of COPD, chronic hypoxic respiratory failure, obstructive sleep apnea and coronary artery disease who presented to the ER with moderate shortness of breath for The last couple of weeks. The patient has a chronic cough that is for the most part nonproductive but will occasionally have yellow sputum production. He denieshaving any chest pain or fever. He denies any COVID-19 exposures. He has been more short of breath with activity. he has also had increased cough. He denies having any fevers or chills. Per ER documentation, his feels that the patient is more confused than baseline. he has noticed increased wheezing for the last 2-3 weeks. he has had significantly decreased appetite over the last 2-3 weeks. He has been having some mild irritation in his mouth but denies a sore throat. patient is on chronic home O2 2 L nasal cannula. The patient has been using his nebulizer treatments at home twice a day without relief in his symptoms. The patient is only a fair historian. He initially denied having any increased cough or sputum production he then later stated that he had been having increased cough. He had initially denied having any wheezing but then later stated that he had been wheezing more for the last couple of weeks. Review of Systems Review of Systems: Narrative: 12 systems were reviewed with pertinent positives and negatives per HPI. Except as documented in the HPI, all other systems were reviewed and are negative. [facility] Past Medical History Medical History (Updated 03/25/20 @ 05:24 by Nancy Coyle DO) Anxiety Arthritis Back pain Bronchitis CAD (coronary artery disease) Cirrhosis Depression Diabetes mellitus with a hemoglobin A1c of 7.52 1018 Essential hypertension GERD (gastroesophageal reflux disease) Hepatitis B History of blood transfusion Hyperlipidemia Insomnia Kidney stone Leg fracture, left Liver tumor status post chemotherapy 2017 Rectal polyp benign Sinus problem Sleep apnea intolerant to CPAP Urinary leakage Surgical History Surgical History (Updated 03/25/20 @ 05:27 by Nancy Coyle DO) 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 He smoked half a pack of cigarettes per day and quit in 2015. 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 he and his have 5 children. His Reyna is his surrogate decision maker. Primary care physician: Dr. Yoel Fallon Smoking packs per day: 0.5 Smoking cigarettes per day: 10.0 Years smoked: 30 Smoking pack-years: 15.00 Smoking status: Former smoker Tobacco type: cigarettes Alcohol intake: former Alcohol use details: He denies excessive alcohol use in the past. He only drank alcohol in moderation but has not drank alcohol in many years. Substance use: never Gender identity (if verbalized by the patient): Male Spiritual care concerns: No Meds Home Medications and Allergies Home Medications Medication Instructions Recorded Confirmed Type acetaminophen 325 mg capsule 325 mg PO Q6H PRN 06/12/19 03/24/20 History buspirone 15 mg tablet 15 mg PO QID 06/12/19 03/24/20 History entecavir 0.5 mg tablet 0.5 mg PO DAILY 06/12/1903/24
[2020-03-25 09:44] LABS: Hematocrit 39.8 % (42.0-52.0); Hemoglobin 13.2 g/dL (14.0-18.0); Mean Corpuscular HGB Conc 33.2 g/dl (32-36); Mean Corpuscular Hemoglobin 30.2 pg (26-34); Mean Corpuscular Volume 91.1 fl (80-100); Mean Platelet Volume 11.8 fl (7.4-10.4); Platelet Count Result 166 k/mm3 (150-375); Red Blood Count 4.37 M/mm3 (4.6-6.20); Red Cell Distribution Width 15.4 % (11.5-14.5); White Blood Count 3.9 K/mm3 (4.5-10.0)
[2020-03-25 09:55] LABS: Alanine Aminotransferase 35 U/L (4-50); Albumin Level 3.9 g/dL (3.5-5.1); Alkaline Phosphatase 101 U/L (38-126); Anion Gap 11 mmol/L (8-16); Aspartate Amino Transferase 93 U/L (17-59); Bilirubin,Total 0.8 mg/dL (0.2-1.3); Blood Urea Nitrogen 35 mg/dL (9-20); Calcium 8.4 mg/dL (8.4-10.2); Carbon Dioxide 25 mmol/L (22-30); Chloride 97 mmol/L (98-107); Estimated CRCL calculation 81 ml/min; Estimated Glomerular Filt Rate > 60; Glucose 281 mg/dL (75-110); Potassium 4.9 mmol/L (3.4-5.0); Sodium 133 mmol/L (137-145)
[2020-03-25] MEDS: ATORVASTATIN 40 MG TABLET 80 MG PO (10:13)
[2020-03-25] MEDS: lisinopriL 10 MG TABLET PO (10:14)
[2020-03-25] MEDS: busPIRone HCL 5 MG TABLET 15 MG PO ×4 (10:14→20:08)
[2020-03-25] MEDS: NYSTATIN 100,000 UNITS/ML SUSP 5 ML ORAL.SUSP PO ×4 (10:15→20:08)
[2020-03-25] MEDS: methylPREDNISolone SOD SUCC 40 MG VIAL IV PUSH ×2 (10:15→17:21)
[2020-03-25] MEDS: SERTRALINE HCL 50 MG TABLET 150 MG PO (10:16)
[2020-03-25] MEDS: ENOXAPARIN 40 MG/0.4 ML SYRINGE SUB-Q (10:17)
[2020-03-25 13:28] LABS: SARS-CoV-2 RNA PCR Positive
--- NOTE | 2020-03-25 13:37 | PM.IMPN ---
Progress Note: A&P Assessment and Plan (1) Pneumonia: Qualifiers: Laterality: bilateral Lung location: unspecified part of lung Pneumonia type: due to unspecified organism Qualified Code(s): J18.9 - Pneumonia, unspecified organism Code(s): J18.9 - Pneumonia, unspecified organism Status: Acute Assessment and Plan: Patient with COPD presents with worsening shortness of breath over the last couple weeks. Date of symptom onset is vague and unknown. Chest XR consistent with pneumonia. COVID-19 positive. Will discontinue antibiotic therapy. Continue supportive care with supplemental O2, tylenol, albuterol inhaler. (2) Acute exacerbation of chronic obstructive pulmonary disease: Code(s): J44.1 - Chronic obstructive pulmonary disease with (acute) exacerbation Status: Acute Assessment and Plan: Will continue steroid therapy with IV Solu-medrol and wean dose. Continue albuterol. (3) COVID-19: Code(s): U07.1 - COVID-19 Status: Acute Assessment and Plan: See above. (4) Acute and chronic respiratory failure: Qualifiers: Respiratory failure complication: hypoxia Qualified Code(s): J96.21 - Acute and chronic respiratory failure with hypoxia Code(s): J96.20 - Acute and chronic respiratory failure, unspecified whether with hypoxia or hypercapnia Status: Acute Assessment and Plan: Patient normally uses 2 liters/minute O2 at home. Currently using 3 L today. Will wean O2 as tolerated. (5) Diabetes mellitus: Code(s): E11.9 - Type 2 diabetes mellitus without complications Status: Chronic Assessment and Plan: Will initiate Accu-Cheks, cover with sliding scale insulin. (6) Essential hypertension: Code(s): I10 - Essential (primary) hypertension Status: Chronic Assessment and Plan: Stable. Last 132/80. Continue home lisinopril. Subjective Date/time seen: 03/25/20 1245 Interval history: Mr. Norris is a 70yo M admitted for pneumonia secondary to COVID-19. He reports feeling okay this afternoon, did not sleep much. Reports shortness of breath is improving, more near his baseline. Reports his cough is not too much different than normal. He denies chest pain. Tolerated some oral intake without nausea or vomiting. Review of Systems Review of Systems: Narrative: Twelve systems were reviewed with pertinent positives and negatives as per HPI. Exam Narrative: Exam Narrative: General: Male resting supine in bed in no acute distress. HEENT: Normocephalic, EOMI, oral mucosa moist. Cardiovascular: Rate and rhythm are regular. Respiratory: Decreased breath sounds MARK. Non-labored breathing. Tolerating 3L O2 nasal cannula. Abdomen: Soft, non-tender, non-distended, bowel sounds present. Extremities: Peripheral pulses intact. No edema. Neuro: No focal neurological deficits. Speech is clear. Objective Data Vital Signs Vital Signs: Last Vital Signs Temp 97.6 F 03/25/20 12:00 Pulse 87 03/25/20 12:00 Resp 12 03/25/20 12:00 BP 132/80 03/25/20 12:00 Pulse Ox 92 03/25/20 12:00 Intake/Output Intake/Output: Intake & Output 03/22/20 03/23/20 03/24/20 03/25/20 23:59 23:59 23:59 23:59 Intake Total 150 300 Output Total 200 Balance 150 100 Meds/Results Medications: Active Medications Generic Name Dose Route Start Last Admin Trade Name Freq PRN Reason Stop Dose Admin Albuterol 6 puff 03/25/20 12:00 Proventil Hfa INHALATION QIDRT AVRIL Atorvastatin Calcium 80 mg 03/25/20 09:00 03/25/20 10:13 Lipitor PO 80 mg DAILY AVRIL Administration Buspirone HCl 15 mg 03/25/20 09:00 03/25/20 10:14 Buspar PO 15 mg QID AVRIL Administrati
[2020-03-25] MEDS: ALBUTEROL SULFATE (*SP) AEROSOL 1 PUFF 6 PUFF INHALATION ×2 (13:45→17:30)
[2020-03-25 17:31] LABS: Glucose Point of Care 286 (65-105)
[2020-03-25] MEDS: INSULIN ASPART (*BKC) 100 UNITS/ML SUB-Q (18:15)
[2020-03-25] MEDS: QUEtiapine FUMARATE 25 MG TABLET PO (20:08)
[2020-03-25] MEDS: ZOLPIDEM TARTRATE 5 MG TABLET PO (20:08)
[2020-03-25 20:25] LABS: Glucose Point of Care 273 (65-105)
--- NOTE | 2020-03-25 21:55 | PHAR ---
HOME MED- ENTECAVIR VERIFIED BY PHARMACY AND SENT FOR INPATIENT USE
[2020-03-25] MEDS: ENTECAVIR 0.5 MG TABLET PO (21:59)
[2020-03-26] VITALS (8 sets, daily range): BP systolic 91–116; BP diastolic 49–64; PULSE 67–89; RESP 18–20; TEMP 36.1–36.4; O2SAT 91–95
[2020-03-26 07:39] LABS: Basophils Percent Auto 0.2 % (0.2-1.2); Hematocrit 36.7 % (42.0-52.0); Immature Granulocyte Absolute 0.11 K/mm3 (0.00-0.031); Immature Granulocyte Percent A 1.9 % (0-0.5); Lymphocytes Absolute Auto 0.25 K/mm3 (0.9-3.2); Lymphocytes Percent Auto 4.3 % (18.3-44.2); Mean Corpuscular HGB Conc 32.7 g/dl (32-36); Mean Corpuscular Hemoglobin 30.3 pg (26-34); Mean Corpuscular Volume 92.7 fl (80-100); Mean Platelet Volume 11.9 fl (7.4-10.4); Monocytes Absolute Auto 0.3 K/mm3 (0.1-0.6); Monocytes Percent Auto 5.7 % (2.6-8.5); Neutrophils Absolute Auto 5.1 K/mm3 (1.3-6.7); Neutrophils Percent Auto 87.9 % (45.5-73.1); Nucleated Red Blood Cells Perc 0.3 % (0.0-0.2); Platelet Count Result 152 k/mm3 (150-375); Red Blood Count 3.96 M/mm3 (4.6-6.20); Red Cell Distribution Width 15.1 % (11.5-14.5); White Blood Count 5.8 K/mm3 (4.5-10.0)
[2020-03-26 07:51] LABS: D Dimer 1.71 ug/mL (<0.48)
[2020-03-26 07:54] LABS: Alanine Aminotransferase 31 U/L (4-50); Albumin Level 3.5 g/dL (3.5-5.1); Alkaline Phosphatase 99 U/L (38-126); Anion Gap 10 mmol/L (8-16); Aspartate Amino Transferase 67 U/L (17-59); Bilirubin,Total 0.5 mg/dL (0.2-1.3); Blood Urea Nitrogen 49 mg/dL (9-20); CRP 7.4 mg/dL (<1.0); Calcium 8.6 mg/dL (8.4-10.2); Carbon Dioxide 27 mmol/L (22-30); Chloride 97 mmol/L (98-107); Estimated CRCL calculation 67 ml/min; Estimated Glomerular Filt Rate > 60; Glucose 332 mg/dL (75-110); Lactate Dehydrogenase 661 U/L (313-618); Magnesium 2.6 mg/dL (1.6-2.3); Potassium 4.6 mmol/L (3.4-5.0); Sodium 134 mmol/L (137-145)
[2020-03-26 08:39] LABS: Glucose Point of Care 311 (65-105)
[2020-03-26] MEDS: ALBUTEROL SULFATE (*SP) AEROSOL 1 PUFF 6 PUFF INHALATION ×4 (09:07→21:24)
[2020-03-26 12:44] LABS: Glucose Point of Care 288 (65-105)
--- NOTE | 2020-03-26 15:00 | PM.IMPN ---
Progress Note: A&P Assessment and Plan (1) Pneumonia: Qualifiers: Laterality: bilateral Lung location: unspecified part of lung Pneumonia type: due to unspecified organism Qualified Code(s): J18.9 - Pneumonia, unspecified organism Code(s): J18.9 - Pneumonia, unspecified organism Status: Acute Assessment and Plan: Patient with COPD presents with worsening shortness of breath. Date of symptom onset is vague and unknown. Chest XR consistent with pneumonia. COVID-19 positive. Antibiotic therapy discontinued. Continue supportive care with supplemental O2, Tylenol, albuterol inhaler. (2) Acute exacerbation of chronic obstructive pulmonary disease: Code(s): J44.1 - Chronic obstructive pulmonary disease with (acute) exacerbation Status: Acute Assessment and Plan: Will continue steroid therapy; he was treated with IV solu-medrol and transitioned to oral prednisone today. Continue albuterol. (3) COVID-19: Code(s): U07.1 - COVID-19 Status: Acute Assessment and Plan: See above. (4) Acute and chronic respiratory failure: Qualifiers: Respiratory failure complication: hypoxia Qualified Code(s): J96.21 - Acute and chronic respiratory failure with hypoxia Code(s): J96.20 - Acute and chronic respiratory failure, unspecified whether with hypoxia or hypercapnia Status: Acute Assessment and Plan: Patient normally uses 2 liters/minute O2 at home. Will wean O2 as tolerated and consider home O2 eval at discharge. (5) Diabetes mellitus: Qualifiers: Diabetes mellitus complication status: without complication Diabetes mellitus lobby porter insulin use: without lobby porter use Diabetes mellitus type: type 2 Qualified Code(s): E11.9 - Type 2 diabetes mellitus without complications Code(s): E11.9 - Type 2 diabetes mellitus without complications Status: Chronic Assessment and Plan: Monitor with accu-cheks, cover with sliding scale insulin. (6) Essential hypertension: Code(s): I10 - Essential (primary) hypertension Status: Chronic Assessment and Plan: Stable maintained on home lisinopril. Will monitor. Subjective Date/time seen: 03/26/20 1245 Interval history: Mr. Norris is a 70yo M admitted for pneumonia secondary to COVID-19. He thinks his shortness of breath has improved. He is just feeling very tired and weak. He denies chest pain. He has tolerated some oral intake without nausea or vomiting. Review of Systems Review of Systems: Narrative: Twelve systems were reviewed with pertinent positives and negatives as per HPI. Exam Narrative: Exam Narrative: General: Male resting supine in bed in no acute distress. HEENT: Normocephalic, EOMI, oral mucosa moist. Cardiovascular: Rate and rhythm are regular. Respiratory: Decreased breath sounds MARK. Non-labored breathing. Tolerating 3L O2 nasal cannula. Abdomen: Soft, non-tender, non-distended, bowel sounds present. Extremities: Peripheral pulses intact. No edema. Neuro: No focal neurological deficits. Speech is clear. Objective Data Vital Signs Vital Signs: Last Vital Signs Temp 97.0 F L 03/26/20 08:00 Pulse 80 03/26/20 08:00 Resp 20 03/26/20 08:00 BP 104/57 L 03/26/20 08:00 Pulse Ox 91 03/26/20 09:24 Intake/Output Intake/Output: Intake & Output 03/23/20 03/24/20 03/25/20 03/26/20 23:59 23:59 23:59 23:59 Intake Total 150 890 120 Output Total 400 250 Balance 150 490 -130 Meds/Results Medications: Active Medications Generic Name Dose Route Start Last Admin Trade Name Freq PRN Reason Stop Dose Admin Albuterol 6 puff 03/25/20 12:00 03/26/20
[2020-03-26] MEDS: ATORVASTATIN 40 MG TABLET 80 MG PO (17:33)
[2020-03-26] MEDS: SERTRALINE HCL 50 MG TABLET 150 MG PO (17:33)
[2020-03-26] MEDS: predniSONE 20 MG TABLET 60 MG PO (17:33)
[2020-03-26] MEDS: NYSTATIN 100,000 UNITS/ML SUSP 5 ML ORAL.SUSP PO ×2 (17:33→21:09)
[2020-03-26] MEDS: ENTECAVIR 0.5 MG TABLET PO (17:34)
[2020-03-26] MEDS: lisinopriL 10 MG TABLET PO (17:34)
[2020-03-26] MEDS: busPIRone HCL 5 MG TABLET 15 MG PO ×2 (17:34→21:08)
[2020-03-26] MEDS: INSULIN ASPART (*BKC) 100 UNITS/ML SUB-Q (17:36)
[2020-03-26 19:35] LABS: Glucose Point of Care 267 (65-105)
[2020-03-26] MEDS: QUEtiapine FUMARATE 25 MG TABLET PO (21:09)
[2020-03-26] MEDS: ZOLPIDEM TARTRATE 5 MG TABLET PO (21:12)
[2020-03-26 21:31] LABS: Glucose Point of Care 258 (65-105)
[2020-03-27] VITALS (7 sets, daily range): BP systolic 104–142; BP diastolic 57–81; PULSE 67–94; RESP 20–22; TEMP 36.4–36.5; O2SAT 92–94
[2020-03-27 06:45] LABS: Anion Gap 6 mmol/L (8-16); Blood Urea Nitrogen 48 mg/dL (9-20); Calcium 8.1 mg/dL (8.4-10.2); Carbon Dioxide 27 mmol/L (22-30); Chloride 99 mmol/L (98-107); Estimated CRCL calculation 81 ml/min; Estimated Glomerular Filt Rate > 60; Glucose 354 mg/dL (75-110); Potassium 4.7 mmol/L (3.4-5.0); Sodium 132 mmol/L (137-145)
[2020-03-27 07:09] LABS: Hemoglobin A1C 9.2 % (<5.7)
[2020-03-27 08:21] LABS: Glucose Point of Care 364 (65-105)
[2020-03-27] MEDS: ALBUTEROL SULFATE (*SP) AEROSOL 1 PUFF 6 PUFF INHALATION ×3 (08:22→16:25)
[2020-03-27] MEDS: INSULIN ASPART (*BKC) 100 UNITS/ML SUB-Q ×3 (09:10→12:13)
[2020-03-27] MEDS: ENOXAPARIN 40 MG/0.4 ML SYRINGE SUB-Q (09:14)
[2020-03-27] MEDS: busPIRone HCL 5 MG TABLET 15 MG PO ×2 (09:14→12:08)
[2020-03-27] MEDS: SERTRALINE HCL 50 MG TABLET 150 MG PO (09:15)
[2020-03-27] MEDS: ATORVASTATIN 40 MG TABLET 80 MG PO (09:15)
[2020-03-27] MEDS: NYSTATIN 100,000 UNITS/ML SUSP 5 ML ORAL.SUSP PO ×2 (09:15→12:08)
[2020-03-27] MEDS: lisinopriL 10 MG TABLET PO (09:16)
[2020-03-27] MEDS: ENTECAVIR 0.5 MG TABLET PO (09:16)
[2020-03-27] MEDS: predniSONE 20 MG TABLET 60 MG PO (09:19)
--- NOTE | 2020-03-27 10:04 | PCPTNOTE ---
Attempted PT eval. Pt refused therapy due to indigestion and nausea. Explained getting up may help with that and he still refused.
[2020-03-27] MEDS: FAMOTIDINE 20 MG TABLET PO (12:08)
--- NOTE | 2020-03-27 15:50 | PCPTNOTE ---
Attempted PT eval at 1345. Pt refused therapy, states he's being discharged home. Encouraged him to participate w/ therapy and he still refused.
--- NOTE | 2020-03-27 16:21 | PM.DS ---
DS: Admitting Diagnosis Admitting Diagnosis Admitting Diagnosis: copd exacerbation DS: Discharge Diagnosis Discharge Diagnosis (1) Pneumonia: Qualifiers: Laterality: bilateral Lung location: unspecified part of lung Pneumonia type: due to unspecified organism Qualified Code(s): J18.9 - Pneumonia, unspecified organism Code(s): J18.9 - Pneumonia, unspecified organism Status: Acute Assessment and Plan: Date of Service is 03/27/20 Mr. Norris is a pleasant 70yo M with history of COPD with chronic respiratory failure (2L/min home O2 requirement), type 2 diabetes mellitus, coronary artery disease, history of liver tumor s/p chemotherapy followed at [facility], and hypertension who presented to the ED for evaluation of increased shortness of breath, nonproductive cough, and weakness x 3 weeks. He was found to have MARK pneumonia and was COVID positive 03/25/20. He was treated supportively with supplemental O2 increased from his baseline, Tylenol, and albuterol inhaler. He was treated with steroid therapy for possible underlying COPD exacerbation. Clinically he improved quite quickly and noted his shortness of breath was at his baseline prior to discharge. He was found to require 3L/min O2 nasal cannula and was discharged with instructions to continue the 3L (increased from his baseline of 2). His blood sugars were quite elevated here. He was started on a trial of metformin and instructed to follow up with PCP this week. Blood sugars may be acutely elevated in part due to steroid therapy but A1c is 9.2. PT eval ordered prior to discharge, patient declined therapy x 2. He was hemodynamically stable for discharge 03/27/20 with a prescription for prednisone taper and instructions to follow up with PCP and Dr Funez's office. Patient with COPD presents with worsening shortness of breath. Date of symptom onset is vague and unknown. Chest XR consistent with pneumonia. COVID-19 positive. Continue supportive care with supplemental O2, Tylenol, albuterol inhaler. (2) Acute exacerbation of chronic obstructive pulmonary disease: Code(s): J44.1 - Chronic obstructive pulmonary disease with (acute) exacerbation Status: Acute Assessment and Plan: Will continue steroid therapy; he was treated with IV solu-medrol and transitioned to oral prednisone prior to discharge; doing well. Continue albuterol. Nebulizers at home. (3) COVID-19: Code(s): U07.1 - COVID-19 Status: Acute Assessment and Plan: See above. (4) Acute and chronic respiratory failure: Qualifiers: Respiratory failure complication: hypoxia Qualified Code(s): J96.21 - Acute and chronic respiratory failure with hypoxia Code(s): J96.20 - Acute and chronic respiratory failure, unspecified whether with hypoxia or hypercapnia Status: Acute Assessment and Plan: Patient normally uses 2 liters/minute O2 at home. Will wean O2 as tolerated and consider home O2 eval at discharge. (5) Diabetes mellitus: Qualifiers: Diabetes mellitus type: type 2 Diabetes mellitus exterminator helper insulin use: without fdc use Diabetes mellitus complication status: without complication Qualified Code(s): E11.9 - Type 2 diabetes mellitus without complications Code(s): E11.9 - Type 2 diabetes mellitus without complications Status: Chronic Assessment and Plan: Monitored with accu-cheks, cover with sliding scale insulin. Start metformin and follow up with PCP this week. (6) Essential hypertension: Code(s): I10 - Essential (primary) hypertension Status: Chronic Assessment and Plan: Stable maintained on home lisinopril.
[2020-03-27 18:10] LABS: Glucose Point of Care 207 (65-105)
== END 2020-03-27 17:15 | disposition home or self-care (01) | DRG 177 ==
LOC: ANHED 17:06 → ANH3MEDSUR 20:27
PROVIDERS: Physician Assistant; Admitting Provider Internal Medicine; Emergency Provider Emergency Medicine; PCP Internal Medicine; Visit Provider Family Medicine
DX: U07.1 COVID-19 (principal); J12.89 Other viral pneumonia; J96.21 Acute and chronic respiratory failure with hypoxia; J44.1 Chronic obstructive pulmonary disease with (acute) exacerbation; J44.0 Chronic obstructive pulmonary disease with (acute) lower respiratory infection; B37.0 Candidal stomatitis; E11.9 Type 2 diabetes mellitus without complications; I10 Essential (primary) hypertension; G47.33 Obstructive sleep apnea (adult) (pediatric); I25.10 Atherosclerotic heart disease of native coronary artery without angina pectoris; M19.90 Unspecified osteoarthritis, unspecified site; K21.9 Gastro-esophageal reflux disease without esophagitis; E78.5 Hyperlipidemia, unspecified; K74.60 Unspecified cirrhosis of liver; Z95.1 Presence of aortocoronary bypass graft; Z87.891 Personal history of nicotine dependence; E66.9 Obesity, unspecified; Z68.32 Body mass index [BMI] 32.0-32.9, adult; Z99.81 Dependence on supplemental oxygen
CPT/HCPCS: 36415; 36600; 70450; 71045; 71275; 80048; 80053; 82728; 82805; 83036; 83615; 83735; 83880; 84484; 85025; 85027; 85380; 86140; 87635; 93005; 94640; 96365; 96372; 96375; 96376; 97165; 99285; A9270; C9803; G0378; J1650; J1815; J1956; J2920; J2930; J7512; Q9967; U0003

== ENCOUNTER 2020-05-24 09:16 | Outpatient (CLI) | payer MEDICARE, SELFPAY ==
--- NOTE | ~2020-05-24 | US_ITS ---
EXAMINATION: US abdomen complete EXAM DATE: 05/24/2020 10:41 INDICATION: R10.9 - Unspecified abdominal pain . Splenomegaly. TECHNIQUE: Multiple grayscale and Doppler images of the complete abdomen were obtained (by a technolo gist who performed the scan) and subsequently reviewed. Comparison is made to prior examination from 02/03/2012. FINDINGS: The abdominal aorta is normal in caliber. Visualized portion IVC is patent. The pancreatic head a nd body are normal in appearance. The pancreatic tail is not visualized. There is heterogeneous liver echogenicity nodularity suspected, probably cirrhosis. Largest somewhat focal region of heterogeneity measures up to 5 cm, a possible liver mass for which liver MRI is recom mended if no contraindication. There is another 2.5 cm focal hyperechoic region. There is no evidence of intrahepatic biliary duct dilation. Portal venous flow was seen in the hepatopedal, normal direc tion and has normal Doppler waveform. Common bile duct measures 4 mm, which is normal. The gallbladder wall is normal in thickness, with ex pected amount of distention. No sonographic evidence of pericholecystic fluid. There is cholelithia sis. Technologist performing exam reports patient did not demonstrate sonographic Asencio's sign. P derrick note that this sign is less reliable in patients who have received pain medication. Right kidney: There is normal contour and echogenicity. It measures 11.9 x 4.4 x 5.2 centimeters. There are no focal renal lesions identified. There is no hydronephrosis. Left kidney: There is normal contour and echogenicity. It measures 10.6 x 4.7 x 5.7 centimeters. T here are no focal renal lesions identified. There is no hydronephrosis. The spleen measures 16.6 cm, is moderately enlarged. Probably several splenic granulomas. IMPRESSION: 1. Cirrhosis, with at least 2 focal masslike regions. Liver MRI is indicated to evaluate possibilit y of HCC or metastatic disease. 2. Splenomegaly, could be from portal hypertension. Reviewed, dictated and finalized at location A. IMPRESSION: 1. Cirrhosis, with at least 2 focal masslike regions. Liver MRI is indicated to evaluate possibility of HCC or metastatic disease. 2. Splenomegaly, could be from portal hypertension.
[2020-05-24 09:42] LABS: Alanine Aminotransferase 31 U/L (4-50); Albumin Level 3.8 g/dL (3.5-5.1); Alkaline Phosphatase 213 U/L (38-126); Aspartate Amino Transferase 111 U/L (17-59)
[2020-05-24 10:34] LABS: Hepatitis B Surface Antigen Positive (Negative)
[2020-05-24 10:39] LABS: HAV RESULT Negative (Negative); Hepatitis B Core IgM Result Negative (Negative)
[2020-05-24 10:51] LABS: Hepatitis C Virus Antibody Negative (Negative)
== END 2020-05-24 09:17 | disposition home or self-care (01) ==
PROVIDERS: PCP Internal Medicine; Visit Provider Nurse Practitioner
DX: B18.1 Chronic viral hepatitis B without delta-agent (principal); R10.9 Unspecified abdominal pain; K74.60 Unspecified cirrhosis of liver; R16.1 Splenomegaly, not elsewhere classified
CPT/HCPCS: 36415; 76700; 80074; 80076

== ENCOUNTER 2020-06-02 13:45 | Outpatient (CLI) | payer MEDICARE, SELFPAY ==
--- NOTE | ~2020-06-02 | MR_ITS ---
EXAMINATION: MR abdomen wo/w con DATE: 06/02/2020 15:02 INDICATION: Liver mass. Hepatomegaly. Hepatitis B. Abdominal pain. TECHNIQUE: Magnetic resonance imaging (MRI) of the abdomen was performed without and with 15 mL Multi Harmony intravenous contrast. Sequences included coronal T2-weighted FS FSE, coronal and axial FS FIEST A, axial T2-weighted FSE, coronal LAVA-flex, axial STIR FSE, axial DWI, axial dual-echo T1-weighted F SPGR, and axial LAVA. Postcontrast sequences included coronal LAVA-flex and a time course of axial LA VA. COMPARISON: MRCP 10/03/2007, abdomen ultrasound 05/20/2020 FINDINGS: Motion artifact decreases sensitivity. The liver demonstrates surface nodularity, consistent with cir rhosis. The left hepatic lobe, there is 10.8 x 14.3 cm mass of heterogeneous signal intensity and het erogeneous enhancement with portal vein tumor thrombus, consistent with hepatocellular carcinoma. Wit hin this mass, there is a 3.8 cm nonenhancing mass correlating with the hyperdense mass on the prior CT, consistent with changes of chemoembolization. There are gallstones in the gallbladder, which is n ormal in size. There is mild splenomegaly measuring 16.6 cm. The pancreas and adrenal glands are norm al. There are cysts in the kidneys measuring up to 6 mm on the right. There are no dilated loops of b owel. There is a supraumbilical ventral hernia containing fat. There is a small volume of ascites. 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 IMPRESSION: 1. 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 2. Cirrhosis of the liver with portal venous hypertension. Reviewed, dictated and finalized at location A. NG INSPECTOR IMPRESSION: 1. Hepatocellular carcinoma in left hepatic lobe with portal vein tumor thrombu s and treatment changes. 2. Cirrhosis of the liver with portal venous hypertension.
[2020-06-02 14:28] LABS: Estimated Glomerular Filt Rate > 60
== END 2020-06-02 13:46 | disposition home or self-care (01) ==
LOC: ANHIMG 13:46
PROVIDERS: PCP Internal Medicine; Visit Provider Nurse Practitioner
DX: R16.0 Hepatomegaly, not elsewhere classified (principal); C22.0 Liver cell carcinoma
CPT/HCPCS: 74183; A9577

== ENCOUNTER 2020-07-08 11:19 | Outpatient (CLI) | payer MEDICARE, SELFPAY ==
[2020-07-08 11:57] LABS: Alanine Aminotransferase 47 U/L (4-50); Albumin Level 3.5 g/dL (3.5-5.1); Alkaline Phosphatase 577 U/L (38-126); Anion Gap 7 mmol/L (8-16); Aspartate Amino Transferase 244 U/L (17-59); Bilirubin,Total 0.9 mg/dL (0.2-1.3); Blood Urea Nitrogen 15 mg/dL (9-20); Calcium 9.1 mg/dL (8.4-10.2); Carbon Dioxide 31 mmol/L (22-30); Chloride 99 mmol/L (98-107); Cholesterol 177 mg/dL (0-200); Estimated Glomerular Filt Rate > 60; Glucose 139 mg/dL (75-110); HDL Direct 39 mg/dL; Potassium 3.9 mmol/L (3.4-5.0); Sodium 137 mmol/L (137-145); Triglycerides 133 mg/dL (<150)
[2020-07-08 12:08] LABS: LDL Cholesterol Direct 102 mg/dL
[2020-07-08 12:51] LABS: Hemoglobin A1C 7.3 % (<5.7)
== END 2020-07-08 11:20 | disposition home or self-care (01) ==
PROVIDERS: PCP Internal Medicine; Visit Provider Nurse Practitioner
DX: R73.02 Impaired glucose tolerance (oral) (principal); Z13.6 Encounter for screening for cardiovascular disorders
CPT/HCPCS: 36415; 80053; 80061; 83036

== ENCOUNTER 2020-07-28 12:43 | Inpatient (IN) | payer MEDICARE, SELFPAY ==
[2020-07-28] VITALS (44 sets, daily range): BP systolic 61–94; BP diastolic 38–60; PULSE 60–120; RESP 15–26; TEMP 36.7–37.2; O2SAT 91–100
--- NOTE | ~2020-07-28 | CT_ITS ---
EXAMINATION: CT brain wo con EXAM DATE: 07/28/2020 14:50 INDICATION: Liver cancer. Altered mental status. TECHNIQUE: Spiral CT of the head was performed without contrast. Axial, coronal and sagittal images were reviewed. The dose-length product (DLP) for this examination was 605.33 mGy-cm. The exposure w as tailored according to patient size, and iterative reconstruction (ASIR) was used as additional dos e reduction technique. Comparison is made to prior examination from 03/24/2020. FINDINGS: There is no acute intraparenchymal hemorrhage. No evidence of intraparenchymal brain mass lesion. No evidence of acute infarction. Please note that initial head CT has limited sensitivity f or small or acute infarctions. There is mild periventricular and subcortical hypodensity, nonspecific but probably related to small vessel ischemic disease. There is moderate prominence of the sulci a nd ventricles related to cerebral atrophy. There is intracranial carotid arteriosclerosis. There a re no extra-axial collections. There is no mass effect or midline shift. The orbits are unremarkabl e. Soft tissue is unremarkable. The visualized sinuses and mastoid air cells are well aerated. IMPRESSION: 1. No acute intracranial findings. 2. Chronic age related findings. Reviewed, dictated and finalized at location B. GRADER
--- NOTE | ~2020-07-28 | XR_ITS ---
EXAMINATION: XR chest port-a-cath/central INDICATION: Central line placement TECHNIQUE: Portable AP chest at 1820 hours COMPARISON: 1436 hours FINDINGS: A right subclavian central venous catheter is been inserted which ends with its tip in the proximal superior vena cava. There is no pneumothorax. The lungs are free of acute opacities. There i s chronic scarring at the lateral aspect of the upper left hemithorax. No pleural effusion is identif ied. The cardiomediastinal silhouette is stable. Median sternotomy wires and mediastinal surgical cli ps are seen, likely from prior coronary artery bypass grafting. IMPRESSION: 1. Right subclavian central venous catheter insertion without evidence of pneumothorax. Otherwise no change. Reviewed, dictated and finalized at location A. TH RECORD TECHNICIAN IMPRESSION: 1. Right subclavian central venous catheter insertion without evidence of pneum othorax. Otherwise no change.
--- NOTE | ~2020-07-28 | XR_ITS ---
EXAMINATION: XR chest 1V portable DATE: 07/28/2020 14:36 INDICATION: Weakness TECHNIQUE: frontal view of the chest was obtained. COMPARISON: Chest radiograph dated 03/24/[address] dated 03/26/2020 FINDINGS: Chronic opacities at the lateral left upper lung zone and to lesser degree at the bilateral lung base s. Increased lucency and architectural distortion in the right mid and upper lung zones consistent wi th emphysema. No new airspace opacities, pulmonary edema, pneumothorax or pleural effusion. The cardi omediastinal silhouette is normal. Median sternotomy wires and mediastinal surgical clips are seen, l ikely from prior coronary artery bypass grafting. Enlargement of the central pulmonary arteries consi stent with pulmonary arterial hypertension. IMPRESSION: 1. Chronic opacities at the lateral left upper lung zone and at the bilateral lung bases most likely atelectasis/scarring. No evident new lung disease. 2. Severe emphysema. 3. Enlargement of the central pulmonary arteries consistent with pulmonary arterial hypertension. Reviewed, dictated and finalized at location A. OFF BLOCKER IMPRESSION: 1. Chronic opacities at the lateral left upper lung zone and at the bilateral l annette bases most likely atelectasis/scarring. No evident new lung disease. 2. Severe emphysema. 3. Enlargement of the central pulmonary arteries consistent with pulmonary anna rial hypertension.
--- NOTE | ~2020-07-28 | XR_ITS ---
EXAMINATION: XR chest 1V portable DATE: 07/29/2020 06:21 INDICATION: Dyspnea. Increasing oxygen demand. TECHNIQUE: frontal view of the chest was obtained. COMPARISON: Chest radiograph dated 07/28/2020 and 05/01/2019 FINDINGS: Right internal jugular central venous catheter with distal tip at the cephalad superior vena cava. In creased lucency in the right upper lung zone consistent with emphysema. Unchanged opacities and archi tectural distortion in the left upper lung zone consistent with chronic scarring. No pleural effusion or pneumothorax. The cardiomediastinal silhouette is normal. Median sternotomy wires, ostial markers and mediastinal surgical clips consistent with prior coronary artery bypass grafting. Retained epica rdial pacemaker leads. IMPRESSION: 1. Severe emphysema with chronic scarring at the left upper lung zone. Reviewed, dictated and finalized at location A. D ACCOUNT DIRECTOR
--- NOTE | ~2020-07-28 | CT_ITS ---
EXAMINATION: CT abdomen pelvis wo con DATE: 07/28/2020 14:49 INDICATION: Abdominal pain. History of cirrhosis, liver cancer. TECHNIQUE: Computed tomography (CT) of the abdomen and pelvis was performed without intravenous contr ast. Automated exposure control and iterative reconstruction technique were employed. Exam dose: 135 7.60 mGy-cm total exam DLP. COMPARISON: 09/19/2009 CT abdomen pelvis 05/24/2020 complete abdominal ultrasound 06/02/2020 MRI abdomen examination FINDINGS: Status post sternotomy. Healing lateral right ninth rib fracture. There is diminished size and surface nodularity of the liver consistent with history of cirrhosis. Approximately 3.4 x 4 cm hyperdense area within the left hepatic lobe consistent with chemoembolizati on of reported hepatocellular carcinoma. Mild splenomegaly. Numerous gallstones are noted. No gallbladder wall thickening is evident. No bile duct or pancreatic duct dilatation. No pancreatic mass lesion or calcification. Normal morphology of the adrenal glands. No apparent renal mass lesion. No urinary tract calculus or hydroureteronephrosis. There is mild to 3.5 cm infrarenal abdominal aortic aneurysm. There is moderate ascites. Diverticulosis of left and right colon; no CT evidence of diverticulitis. No bowel obstruction is det ected. No intraperitoneal free air. Moderate fat-containing inguinal hernia. Intramedullary nohemi of left femur. IMPRESSION: Chemoembolization of left hepatic hepatocellular carcinoma by clinical history Cirrhosis, splenomegaly Cholelithiasis Moderate ascites Diverticulosis of the colon Mild infrarenal abdominal aortic aneurysm Reviewed, dictated and finalized at Location A. Reviewed, dictated and finalized at location A. MIRROR DEPARTMENT SUPERVISOR IMPRESSION: Chemoembolization of left hepatic hepatocellular carcinoma by clin ical history Cirrhosis, splenomegaly Cholelithiasis Moderate ascites Diverticulosis of the colon Mild infrarenal abdominal aortic aneurysm
--- NOTE | ~2020-07-28 | US_ITS ---
EXAMINATION: US renal BI EXAM DATE: 07/29/2020 14:22 INDICATION: Elevated creatinine. TECHNIQUE: Multiple grayscale and Doppler images of the kidneys were obtained (by a technologist who performed the scan) and subsequently reviewed. Correlation is made to CT same date. FINDINGS: Mild bilateral renal cortical thinning. Right kidney: There is normal contour and echogenicity. It measures 10.9 x 4.1 x 5.1 centimeters. T here are no focal renal lesions identified. There is no hydronephrosis. Left kidney: There is normal contour and echogenicity. It measures 10.5 x 3.1 x 4.8 centimeters. Th ere are no focal renal lesions identified. There is no hydronephrosis. Sullivan catheter within collapsed bladder. Incidental note made of splenomegaly at 16 cm, cirrhosis and small to moderate amount of ascites. IMPRESSION: 1. Mild bilateral renal cortical thinning. No hydronephrosis. 2. Cirrhosis, small to moderate ascites. 3. Mild splenomegaly. Reviewed, dictated and finalized at location B. ER BRAKE LININGS
[2020-07-28 12:52] LABS: Glucose Point of Care 67 (65-105)
--- NOTE | 2020-07-28 12:57 | ED.GENADULT ---
HPI - General Adult General Chief complaint: Altered Mental Status Stated complaint: CONFUSION/WEAKNESS Time Seen by Provider: 07/28/20 12:48 Source: family and EMS History of Present Illness HPI narrative: Patient is a 70 y/o male brought in by EMS for weakness. Patient is confused and unable to provide much history other than stating that he has abdominal pain. His Reyna states that he has history of Hep B, cirrhosis and liver cancer. His states that patient has not been eating and feeling weak for days. There is no known alleviating or exacerbating factor. He also has been confused. states that they do not want heroic measures , but do want everything done for now and keep patient as full code at this time. EMS reports BS was low and D10 was given. Related Data Home Medications Medication Instructions Recorded Confirmed buspirone 15 mg tablet 15 mg PO QID 06/12/19 07/10/20 entecavir 0.5 mg tablet 0.5 mg PO DAILY 06/12/19 07/10/20 sertraline 100 mg tablet 150 mg PO DAILY 06/12/19 07/10/20 zolpidem 10 mg tablet 10 mg PO HS 06/12/19 07/10/20 albuterol sulfate [ProAir HFA] See Rx Instructions .ROUTE 03/24/20 07/10/20 .COMPLEX PRN quetiapine 25 mg PO HS 03/24/20 07/10/20 Allergies Allergy/AdvReac Type Severity Reaction Status Date / Time Penicillins Allergy Mild Rash Verified 07/14/20 13:15 Review of Systems Review of Systems: ROS unobtainable: Yes unobtainable due to mental status PMFSH Past Medical History Medical History Abdominal pain Anxiety Arthritis Back pain Bronchitis CAD (coronary artery disease) Cirrhosis Depression Diabetes mellitus with a hemoglobin A1c of 7.52 1018 Essential hypertension GERD (gastroesophageal reflux disease) Hepatitis B History of blood transfusion Hyperlipidemia Insomnia Kidney stone Leg fracture, left Liver mass Liver tumor status post chemotherapy 2017 Rectal polyp benign Sinus problem Sleep apnea intolerant to CPAP Urinary leakage Surgical History Surgical History 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 H/O hemorrhoidectomy H/O inguinal hernia repair History of bilateral carpal tunnel release History of cardiac cath Hx of CABG x3 2001 Ulnar nerve impingement status post surgical repair Family History Family History Son Heart disease Mother Family history of malignant neoplasm of breast in first degree relative Patient's mother is Family history of lung cancer, Onset Age: 89 Family history of coronary artery disease, Onset Age: 89 Father Family history of lung disease, Onset Age: 53 Patient's father is Family history of emphysema, Onset Age: 90 Sibling Family history of cardiovascular disease Family history of lung disease Other CHF (congestive heart failure) COPD (chronic obstructive pulmonary disease) Lung cancer Social History Social History Social History: The patient is and lives with his , of 54 years,in [place]. He smoked half a pack of cigarettes per day and quit in 2015. 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 he and his have 5 children. His Reyna is his surrogate decision maker. Primary care physician: Dr. Yoel Fallon Smoking packs per day: 0.5 Smoking cigarettes per day: 10.0 Years smoked: 30 Smoking pack-years: 15.00 Smoking status: Former smoker Tobacco type: cigarettes Smoking end date: 08/01/13 Alcohol intake: former Substance use: never Gender identity (if verbalized by the patient): Male Spiritual care concerns: No Exam Const: General: no acute distress and ill appearing Orientation/consciousness: oriented to person, oriented to place and confusion
--- NOTE | 2020-07-28 13:00 | PC.NURSE ---
Addendum entered by Rey Mcneal RN 07/28/20 18:38: straight cath* Original Note: Attempted to straight patient x2. Pt. had 0ml of urine output. Pt. was bladder scanned to find 28ml in their bladder. ERP aware. No urine obtained at this time.
[2020-07-28] MEDS: SODIUM CHLORIDE 0.9% IV 1,000 ML 999 ML (13:57)
[2020-07-28 14:00] LABS: Basophils Percent Auto 0.3 % (0.2-1.2); Eosinophils Absolute Auto 0.1 K/mm3 (0-0.3); Eosinophils Percent Auto 1.1 % (0-4.4); Hematocrit 42.5 % (42.0-52.0); Hemoglobin 13.8 g/dL (14.0-18.0); Immature Granulocyte Absolute 0.09 K/mm3 (0.00-0.031); Immature Granulocyte Percent A 0.8 % (0-0.5); Immature Platelet Fraction Pct 9.9 % (0.9-11.2); Lymphocytes Percent Auto 13.1 % (18.3-44.2); Mean Corpuscular HGB Conc 32.5 g/dl (32-36); Mean Corpuscular Hemoglobin 25.7 pg (26-34); Mean Corpuscular Volume 79.1 fl (80-100); Mean Platelet Volume 11.6 fl (7.4-10.4); Monocytes Absolute Auto 1.1 K/mm3 (0.1-0.6); Monocytes Percent Auto 9.8 % (2.6-8.5); Neutrophils Absolute Auto 8.5 K/mm3 (1.3-6.7); Neutrophils Percent Auto 74.9 % (45.5-73.1); Platelet Count Result 240 k/mm3 (150-375); Red Blood Count 5.37 M/mm3 (4.6-6.20); Red Cell Distribution Width 19.9 % (11.5-14.5); White Blood Count 11.4 K/mm3 (4.5-10.0)
[2020-07-28 14:03] LABS: Alveolar/Arterial O2 Gradient 80.4 mmHg; Base Excess ABG -9.5 mEq/l (+/-2.0); Fractional Inspired Oxygen 24 %; HCO3 ABG 16.7 mEq/l (22.0-26.0); Oxygen Content ABG 16.5 %vol (16.0-22.0); Oxyhemoglobin 77.4 % THb (90.0-100.0); PCO2 ABG 37.8 mmHg (35.0-45.0); Total Hemoglobin 15.2 g/dL (12.0-18.0)
[2020-07-28 14:06] LABS: Device NASAL CANNULA; Oxygen Saturation ABG 75.7 % (95.0-100.0); PO2 ABG 45.7 mmHg (80.0-100.0); pH ABG 7.264 (7.350-7.450)
[2020-07-28 14:07] LABS: INR 1.1; Prothrombin Time 15.1 Seconds (11.1-14.7)
--- NOTE | 2020-07-28 14:07 | ECG_ITS ---
Measurements Intervals [place] Rate: 90 P: 86 WV: 176 QRS: -54 QRSD: 116 T: 60 QT: 361 QTc: 443 Interpretive Statements SINUS RHYTHM INTRAVENTRICULAR CONDUCTION DELAY LOW QRS VOLTAGE- DIFFUSE LEADS DELAYED PRECORDIAL R/S TRANSITION INFERIOR INFARCT, AGE INDETERMINATE BORDERLINE T WAVE ABNORMALITY- HIGH LATERAL LEADS BASELINE ARTIFACT- V1-V2, V6 ABNORMAL ECG Electronically Signed On 07-28-2020 14:16:17 PROFESSIONAL POKER PLAYER by Anthony Redman D.O.
[2020-07-28 14:15] LABS: Ammonia 30 umol/L (9-30)
[2020-07-28 14:16] LABS: Lactic Acid Reflex 4.5 mmol/L (0.7-2.1)
[2020-07-28 14:28] LABS: Alkaline Phosphatase 529 U/L (38-126); Anion Gap 15 mmol/L (8-16); Aspartate Amino Transferase 739 U/L (17-59); Bilirubin,Total 1.6 mg/dL (0.2-1.3); Blood Urea Nitrogen 78 mg/dL (9-20); Calcium 8.4 mg/dL (8.4-10.2); Carbon Dioxide 20 mmol/L (22-30); Chloride 95 mmol/L (98-107); Estimated CRCL calculation 10 ml/min; Estimated Glomerular Filt Rate 7; Glucose 76 mg/dL (75-110); Lipase 274 U/L (23-300); Potassium 6.5 mmol/L (3.4-5.0); Sodium 130 mmol/L (137-145)
[2020-07-28 14:50] LABS: Alanine Aminotransferase 99 U/L (4-50)
[2020-07-28] MEDS: INSULIN HUMAN REGULAR (*BKC) 100 UNITS/ML 10 UNITS IV PUSH (15:05)
[2020-07-28] MEDS: DEXTROSE 50% 25 GM/50 ML SYRINGE IV PUSH (15:05)
[2020-07-28] MEDS: SODIUM BICARBONATE 8.4% 50 MEQ/50 ML VIAL IV PUSH (15:06)
[2020-07-28] MEDS: CALCIUM GLUCONATE 1,000 MG/10 ML VIAL 1000 MG IV PUSH (15:06)
[2020-07-28 15:22] LABS: Glucose Point of Care 118 (65-105)
[2020-07-28] MEDS: SODIUM CHLORIDE 0.9% IV 1,000 ML 999 ML IV CONT ×2 (15:27→17:31)
[2020-07-28] MEDS: MIDODRINE HCL 10 MG TABLET PO (16:09)
[2020-07-28] MEDS: ALBUMIN HUMAN 25% 25 GM/100 ML 100 ML IVPB ×2 (16:10→22:14)
--- NOTE | 2020-07-28 16:16 | PC.NURSE ---
IV in Right forearm is actually 20G in Left forearm.
--- NOTE | 2020-07-28 16:19 | PC.NURSE ---
ERP aware of Pt. low blood pressure. Albumin infusion started and Pt. able to swallow midodrine PO. Pt. unable to take kayexalate PO. ERP aware and ok with not administering kayexalate.
[2020-07-28 16:56] LABS: Reflex Lactic Acid Yes or No Add Lactic
--- NOTE | 2020-07-28 17:15 | PC.NURSE ---
ERP notified about low blood pressure. ERP aware and and ordered more fluids, see MAR. ERP added on IV ABX to r/o sepsis.
[2020-07-28] MEDS: levoFLOXacin 500 MG/D5W 100 ML 500 MG/100 ML BAG 100 MG IVPB (17:36)
--- NOTE | 2020-07-28 17:45 | PC.NURSE ---
ERP aware of no improvement of blood pressure. Consent obtained for central line placement. Pt. will be started on a levophed drip. See doctor's orders.
[2020-07-28 17:58] LABS: Anion Gap 14 mmol/L (8-16); Blood Urea Nitrogen 71 mg/dL (9-20); Calcium 7.9 mg/dL (8.4-10.2); Carbon Dioxide 21 mmol/L (22-30); Chloride 96 mmol/L (98-107); Estimated CRCL calculation 10 ml/min; Estimated Glomerular Filt Rate 7; Glucose 92 mg/dL (75-110); Potassium 5.3 mmol/L (3.4-5.0); Sodium 131 mmol/L (137-145)
[2020-07-28 18:05] LABS: Lactic Acid 5.2 mmol/L (0.7-2.1)
[2020-07-28] MEDS: OCTREOTIDE ACETATE 100 MCG/ML VIAL 150 MCG SUB-Q (18:26)
[2020-07-28] MEDS: NOREPINEPHRINE 8 MG/D5W 250 ML 8 MG/250 ML BAG 9.38 MG IV CONT (18:27)
[2020-07-28] MEDS: SODIUM CHLORIDE 0.9% IV 500 ML 999 ML IV CONT (19:18)
--- NOTE | 2020-07-28 21:00 | PM.IMHP ---
H&P: HPI History of Present Illness Date/Time: 07/28/20 21:00 Chief Complaint: Weakness and confusion. Narrative: Chester Norris Jr. is an unfortunate 70-year-old male with chronic hepatitis B, history of hepatocellular carcinoma status post chemoembolization in 2017, chronic respiratory failure, COPD, obstructive sleep apnea, coronary artery disease, and hypertension who presented to the emergency department earlier today via EMS from home with reports of generalized weakness and confusion. He is not a great historian and as such a majority of the following is obtained via a review of his electronic medical records as well as discussions with his , who is at bedside. The patient was hospitalized at this facility in March 2020 with COVID-19 and around that time he was started on metformin due to persistent hyperglycemia. Not long after starting metformin he began experiencing diffuse abdominal pain and he was instructed to discontinue the metformin as it was assumed that was causing his discomfort. He continued to have pain and a workup was ultimately pursued with an abdominal MRI on 06/02/2020 showing hepatocellular carcinoma in the left hepatic lobe with portal vein tumor thrombus as well as cirrhosis of the liver with portal venous hypertension. His primary care provider's office arranged for him to have consultations with several specialists at [facility] which happen to be scheduled for this July 30. It is unclear why he was not referred back to [place] where he had his prior chemoembolization. In any event he continues to have abdominal pain most days with a poor appetite and nausea. He has been taking stool softeners and laxatives thinking he is constipated however has frequent soft stools. The last couple of weeks he has been increasingly more weak, fatigued (sleeping most of the day), and confused although he has been much worse the past 2 days. Yesterday he slid onto the floor and several people had come over to help him up. Today he could hardly get up out of bed to get to the commode. At the time my evaluation he is alert and oriented x3 but is confused regarding situation and is not able to provide me with an accurate history. He appears restless and is constantly fidgeting and moving however tells me he feels okay and has no complaints. No fever, chills, or sweats. He denies headache and neck ache. No cold or flu symptoms. He denies chest pain, shortness of breath, orthopnea, PND, lower extremity edema, and cough. No paresthesias or focal weakness. He denies decrease in urine output however to Sullivan catheters have been attempted to be placed with no return of urine. Review of Systems Review of Systems: Narrative: Twelve systems were reviewed with pertinent positives and negatives as per HPI. He is not a good historian and he seems to be unreliable as his answers do not seem to correlate with how sick he is. [facility] Past Medical History Medical History (Updated 07/29/20 @ 01:21 by Kyra Alvarado PA-C) Anemia Anxiety Arthritis Chronic anemia Chronic hepatitis B Chronic obstructive pulmonary disease Cirrhosis Coronary artery disease COVID-19 (~03/2020) Depression Diabetes mellitus with a hemoglobin A1c of 7.52 1018 Essential hypertension Gastroesophageal reflux disease Hepatocellular carcinoma Status post chemoembolization in 2017 at [place]. History of blood transfusion Hyperlipidemia Insomnia Kidney stone Obstructive sleep apnea Intolerant to CPAP. Rectal polyp Type 2 diabetes mellitus Hemoglobin A1c was 6.8% on 07/20/2020. Surgical History Surgical History (Updated 07/29/20 @ 01:14 by Kyra Alvarado PA-C) Amputation finger Partial amputation of the left 2nd and 3rd fingers. History of bilateral carpal tunnel release History of cardiac cath History of coronary artery bypass graft (~2000) History of decompression of ulnar nerve History of hemorrhoidectomy Histor
--- NOTE | 2020-07-28 21:24 | PC.NURSE ---
This patient, Chester Banks Jr., was admitted to Intensive Care Unit-8. Patient/family oriented to hospital policies and general routines including ID bracelet, bed and alarms, visiting hours, pain management, procedures, bathroom and other care routines, personal items, smoking policy, room service/diet, and visiting hours. Information on how to activate the Rapid Response Team has been discussed. Patient/Family are encouraged to report perceived risks to care and to ask questions if they do not understand what they are told or what they should do.
[2020-07-28 21:48] LABS: Glucose Point of Care 66 (65-105)
[2020-07-28 22:12] LABS: Hemoglobin A1C 6.9 % (<5.7)
[2020-07-28 22:14] LABS: Creatine Kinase 1088 U/L (55-170)
[2020-07-28] MEDS: CENTRAL LINE FLUSH 10 ML IV PUSH (22:14)
[2020-07-28] MEDS: SODIUM CHLORIDE 0.9% IV 1,000 ML 100 ML IV CONT (22:14)
[2020-07-28 22:16] LABS: Anion Gap 13 mmol/L (8-16); Blood Urea Nitrogen 70 mg/dL (9-20); Calcium 7.7 mg/dL (8.4-10.2); Carbon Dioxide 19 mmol/L (22-30); Chloride 98 mmol/L (98-107); Estimated CRCL calculation 10 ml/min; Estimated Glomerular Filt Rate 7; Glucose 65 mg/dL (75-110); Magnesium 2.6 mg/dL (1.6-2.3); Potassium 5.7 mmol/L (3.4-5.0); Sodium 130 mmol/L (137-145)
[2020-07-28] MEDS: VASOPRESSIN INJ 100 UNITS in DEXTROSE 5% 95 ML IV CONT (23:18)
[2020-07-28] MEDS: GLUCOSE ORAL GEL 15 GM OF GLUCSE IN 37.5 GM TUBE PO (23:51)
[2020-07-29] VITALS (62 sets, daily range): BP systolic 59–134; BP diastolic 32–91; PULSE 35–96; RESP 15–24; TEMP 36.4–37.2; O2SAT 91–99
[2020-07-29] MEDS: GLUCOSE ORAL GEL 15 GM OF GLUCSE IN 37.5 GM TUBE PO (00:15)
[2020-07-29 00:41] LABS: Glucose Point of Care 62 (65-105)
[2020-07-29 00:41] LABS: Glucose Point of Care 64 (65-105)
[2020-07-29 00:41] LABS: Glucose Point of Care 59 (65-105)
[2020-07-29 00:41] LABS: Glucose Point of Care 173 (65-105)
[2020-07-29 00:41] LABS: Glucose Point of Care 67 (65-105)
[2020-07-29] MEDS: DEXTROSE 50% 25 GM/50 ML SYRINGE IV PUSH (00:41)
[2020-07-29] MEDS: AMIODARONE 360 MG/D5W 200 ML 360 MG/200 ML BAG 33.33 MG IV CONT (00:57)
[2020-07-29] MEDS: AMIODARONE 150 MG/D5W 100 ML 150 MG/100 ML BAG 600 MG IV CONT (00:58)
[2020-07-29 01:20] LABS: Glucose Point of Care 138 (65-105)
[2020-07-29 01:31] LABS: Fractional Inspired Oxygen 36 %; HCO3 VBG 16.6 mEq/l (24.0-30.0); PCO2 VBG 42.3 mmHg (42.0-48.0); PO2 VBG 48.4 mmHg (35.0-45.0)
[2020-07-29 01:32] LABS: Device NASAL CANNULA; pH VBG 7.212 (7.300-7.400)
[2020-07-29 01:52] LABS: Hematocrit 38.4 % (42.0-52.0); Hemoglobin 12.4 g/dL (14.0-18.0); Mean Corpuscular HGB Conc 32.3 g/dl (32-36); Mean Corpuscular Hemoglobin 25.9 pg (26-34); Mean Corpuscular Volume 80.2 fl (80-100); Mean Platelet Volume 11.6 fl (7.4-10.4); Platelet Count Result 221 k/mm3 (150-375); Red Blood Count 4.79 M/mm3 (4.6-6.20); Red Cell Distribution Width 18.8 % (11.5-14.5); White Blood Count 14.4 K/mm3 (4.5-10.0)
[2020-07-29 02:14] LABS: Anion Gap 16 mmol/L (8-16); Blood Urea Nitrogen 72 mg/dL (9-20); Calcium 7.7 mg/dL (8.4-10.2); Carbon Dioxide 18 mmol/L (22-30); Chloride 96 mmol/L (98-107); Estimated CRCL calculation 10 ml/min; Estimated Glomerular Filt Rate 7; Glucose 154 mg/dL (75-110); Magnesium 2.6 mg/dL (1.6-2.3); Phosphorus 9.9 mg/dL (2.5-4.5); Potassium 5.8 mmol/L (3.4-5.0); Sodium 130 mmol/L (137-145)
[2020-07-29 02:19] LABS: Lactic Acid Reflex 4.5 mmol/L (0.7-2.1)
--- NOTE | 2020-07-29 02:25 | PM.EVENT ---
Event Note Event Note Event Note: I was called by nurse to evaluate patient as he was getting hypotensive. He recently was on Levophed and was started on vasopressin. He was consistently having hypotension even on manual blood pressure checks. He was awake and moving in bed pulling at some of his leads and so a sitter was brought in. He then developed 2 minutes run of V-tach and was moving during the entire episode. He converted back to sinus rhythm. He then was given amiodarone bolus and drip. For his blood pressure Levophed was maxed, vasopressin at 0.4, phenylephrine was added with appropriate response of blood pressure. Repeat labs were drawn showing increase in lactate from 4-4.5. Since he is anuric we need to be careful with how much fluids to give him, we will continue supportive care. I updated family including and daughter over the phone and family has changed him to DNR/DNI because they do not want life support. If he decompensates while on 3 pressors, we will allow family to come and visit.
[2020-07-29 03:11] LABS: INR 1.6; Prothrombin Time 19.8 Seconds (11.1-14.7)
[2020-07-29 03:12] LABS: Partial Thromboplastin Time 42.9 SECONDS (22.3-36.8)
[2020-07-29] MEDS: NOREPINEPHRINE 8 MG/D5W 250 ML 8 MG/250 ML BAG 9.38 MG IV CONT (03:17)
[2020-07-29] MEDS: ALBUMIN HUMAN 25% 25 GM/100 ML 100 ML IVPB ×4 (03:23→21:02)
[2020-07-29] MEDS: DEXTROSE 5% 1,000 ML 1,000 ML 100 ML IVPB (03:24)
[2020-07-29 04:40] LABS: Glucose Point of Care 151 (65-105)
[2020-07-29] MEDS: CENTRAL LINE FLUSH 10 ML IV PUSH ×3 (05:52→21:03)
[2020-07-29] MEDS: AMIODARONE 360 MG/D5W 200 ML 360 MG/200 ML BAG 16.67 MG IV CONT ×2 (05:56→16:36)
[2020-07-29 06:38] LABS: Glucose Point of Care 146 (65-105)
[2020-07-29 08:17] LABS: Glucose Point of Care 140 (65-105)
[2020-07-29] MEDS: MIDODRINE HCL 10 MG TABLET PO ×3 (08:23→16:37)
[2020-07-29] MEDS: OCTREOTIDE ACETATE 100 MCG/ML VIAL 150 MCG SUB-Q ×3 (08:24→16:37)
--- NOTE | 2020-07-29 08:29 | PM.CNNEP ---
Assessment and Plan Assessment and plan (1) Acute kidney injury: Code(s): N17.9 - Acute kidney failure, unspecified Status: Acute Assessment and Plan: The patient has acute kidney injury. He has hypotension requiring pressors. His blood pressure has been low ever since he got to the emergency room. It is not clear how long his blood pressure was low at home. So he could have had this long enough to cause acute tubular necrosis. The patient looks dehydrated. He has no swelling. His chest x-ray does not show infiltrates. He is not on oxygen and has good O2 saturations. The fact that he is making very little urine makes it looks like there might be more going on because just ATN or dehydration do not reduce urine output to 0. Obstruction is always a possibility. He does have a history of kidney stones. So could have passed a stone. He could also have some sort of retroperitoneal process related to his cancer causing some obstruction. Patient could have sepsis. This could lead to the hypotension and renal failure. Rhabdomyolysis can cause renal failure as well Hepatorenal syndrome is also a possibility in this setting. Often times dehydration will trigger this event in someone with currently diagnosed cirrhosis. Glomerulonephritis and interstitial nephritis ephritis are less likely in this is clinical setting. Vascular catastrophes are possible as well. It was point will get renal ultrasound and bladder ultrasound; we need to make sure that the Sullivan is in the correct place. Will get urine electrolytes and eosinophils. Will give him IV fluids. Because his bicarbonate level is low, if we just give saline then he has CO2 will probably drop. He is already acidemic. So will give a mixture with some bicarbonate. (2) Metabolic acidosis: Code(s): E87.2 - Acidosis Status: Acute Assessment and Plan: The patient has a metabolic acidosis. His baseline anion gap is only 6. The low anion gap is probably related to his poor nutrition since . Now his anion gap is 14. Could be due to lactic acidosis. His lactate level was 4.5. Beta hydroxybutyrate is always a possibility as well since he has not been eating. He does have diabetes but his sugars are pretty well controlled. Renal failure can cause high anion gap is well. Will give some bicarbonate in his fluids as stated above. (3) Hyperkalemia: Code(s): E87.5 - Hyperkalemia Status: Acute Assessment and Plan: His potassium is a little bit high. We will watch this. Giving the bicarb may help this. (4) Hypotension: Code(s): I95.9 - Hypotension, unspecified Status: Acute Assessment and Plan: Blood pressure is low. This could be dehydration. Sepsis could do this as well. Adrenal insufficiency is always a possibility because of his history of cancer. (5) Hepatocellular carcinoma: Code(s): C22.0 - Liver cell carcinoma Status: Acute Assessment and Plan: This is going to be evaluated at a [place]. (6) Hypoxemic respiratory failure, chronic: Code(s): J96.11 - Chronic respiratory failure with hypoxia Status: Acute Assessment and Plan: He has COPD. He also has untreated sleep apnea. (7) Essential hypertension: Code(s): I10 - Essential (primary) hypertension Status: Chronic Assessment and Plan: He has underlying hypertension which is clearly not an issue now. (8) Diabetes mellitus: Qualifiers: Diabetes mellitus type: type 2 Diabetes mellitus mcfp insulin use: without mcfp use Diabetes mellitus complication status: without complication Qualified Code(s): E11.9 - Type 2 diabetes mellitus without complications Code(s): E11.9 - Type 2 diabetes mellitus without complications Status: Chronic Assessment and Plan: He is getting insulin for this (9) Obstructive sleep apnea: Code(s
[2020-07-29] MEDS: SODIUM CHLORIDE 0.9% IV 1,000 ML 999 ML IV CONT (09:33)
[2020-07-29 09:42] LABS: Creatine Kinase 1266 U/L (55-170)
--- NOTE | 2020-07-29 09:44 | WPDCNINT ---
Assessment and Plan Assessment and plan (1) Septic shock: Code(s): A41.9 - Sepsis, unspecified organism; R65.21 - Severe sepsis with septic shock Status: Acute Assessment and Plan: Shock: Multifactorial could be hypovolemic, septic, likely secondary to SBP, in liver and renal dysfunction, uremia -patient currently on Levophed, Geovanny-Synephrine, vasopressin -bradycardia, will start dopamine -continue cefepime, will add vancomycin -blood cultures have been obtained and pending (2) Acute kidney injury: Code(s): N17.9 - Acute kidney failure, unspecified Status: Acute Assessment and Plan: Acute kidney injury likely related to shock/hypotension, ATN, infection, possible obstruction, hypovolemia, possible hepatorenal syndrome -patient adequately fluid-resuscitated, nephrology following the patient, giving additional IV fluid bolus -patient will be started on bicarb infusion -renal ultrasound and urine lytes have been ordered by Nephrology (3) Hepatorenal syndrome: Code(s): K76.7 - Hepatorenal syndrome Status: Acute Assessment and Plan: -patient started on albumin, midodrine and octreotide (Dr. Amaya from ER discussed with faculty physician at [facility], who recommended starting these meds) (4) Hyperkalemia: Code(s): E87.5 - Hyperkalemia Status: Acute Assessment and Plan: Patient has been treated with insulin and D50, bicarb, Kayexalate -patient will be started on bicarb infusion -will give dose of albuterol continuous neb (5) Metabolic acidosis: Code(s): E87.2 - Acidosis Status: Acute Assessment and Plan: Severe metabolic acidosis likely related to uremia -bicarb infusion is being started, urology followed (6) Chronic anemia: Code(s): D64.9 - Anemia, unspecified Status: Acute Assessment and Plan: Hemoglobin has been stable, will continue to monitor (7) Chronic obstructive pulmonary disease: Qualifiers: COPD type: emphysema Emphysema type: unspecified Qualified Code(s): J43.9 - Emphysema, unspecified Code(s): J44.9 - Chronic obstructive pulmonary disease, unspecified Status: Acute Assessment and Plan: History of COPD, barrel-chested -added bronchodilators (8) Hepatocellular carcinoma: Code(s): C22.0 - Liver cell carcinoma Status: Acute Assessment and Plan: History of hepatocellular carcinoma with chemoembolization in [facility] MRI on 06/02/2020 showed hepatocellular carcinoma and left hepatic lobe with portal vein thrombosis and treatment changes, cirrhosis of liver with portal venous hypertension -patient has been accepted to [facility] in awaiting a bed (9) Diabetes mellitus: Qualifiers: Diabetes mellitus complication status: without complication Diabetes mellitus detention insulin use: without terminal system operator use Diabetes mellitus type: type 2 Qualified Code(s): E11.9 - Type 2 diabetes mellitus without complications Code(s): E11.9 - Type 2 diabetes mellitus without complications Status: Chronic Assessment and Plan: Accu-Cheks and sliding scale insulin Additional Plan Discussed with family updated with his condition and plan of care Code status: Do not resuscitate/do not intubate Critical care time spent: 49 minutes Condition: Guarded and critical Due to a high probability of clinically significant, life threatening deterioration, the patient required my highest level of preparedness to intervene emergently and I personally spent this critical care time directly and personally managing the patient. This critical care time included obtaining a history; examining the patient; pulse oximetry; ordering and review of studies; arranging urgent treatment with development of a management plan; evaluation of patient's response to treatment; frequent reassessment; and discussions with other providers. It was excl
[2020-07-29] MEDS: NOREPINEPHRINE 8 MG/D5W 250 ML 8 MG/250 ML BAG 37.5 MG IV CONT (10:10)
[2020-07-29] MEDS: SODIUM BICARBONATE 8.4% 75 MEQ in SODIUM CHLORIDE 0.45% 1,000 ML 125 MEQ IV CONT ×2 (10:38→18:46)
[2020-07-29] MEDS: DOPamine 400 MG/D5W 250 ML 400 MG/250 ML BAG 8.28 MG IV CONT (11:25)
[2020-07-29] MEDS: ALBUTEROL SULFATE NEB 2.5 MG/0.5 ML INH 10 MG INHALATION (11:48)
[2020-07-29 12:03] LABS: Glucose Point of Care 144 (65-105)
--- NOTE | 2020-07-29 15:08 | WPDPROCEDUR ---
Procedures Arterial Line Arterial Line Date: 07/29/20 Arterial Line Time: 15:09 Discussed with the patient/family/POA, the placement of an arterial catheter, including its clinical necessity/indication and associated potential risks, benefits and alternatives.: Yes Patient/family/POA and/or understands and acknowledges the need to proceed with the arterial catheter insertion as an important element of the patient's clinical management.: Yes Time Out Performed: Yes Patient Position: supine Surgical Sales Representative Prep: sterile gown, sterile gloves, mask and hat Site: right and femoral Site Prep: chlorhexidine and sterile drape Skin Anesthesia: 1% lidocaine Technique used: ultrasound-guided Size (Gauge): 14 Length: 12 cm Closure/Dressing: suture, transparent dressing, hemostatic product, antimicrobial product and securement product Patient tolerated procedure: well Complications: none
[2020-07-29 15:23] LABS: Add Urine Microscopic? YES; Amorphous Sediment Urine Few; Appearance Urine Cloudy (Clear); Bacteria Urine Trace /hpf; Bilirubin Urine Negative (Negative); Blood Urine 3+ (Negative); Color Urine Yellow (Yellow); Glucose Urine UA Negative (Negative); Ketones Urine Negative (Negative); Leukocyte Esterase Ur 1+ LEU/UL (Negative); Mucus Urine Rare /lpf; Nitrate Urine Negative (Negative); Protein Urine 2+ mg/dL (Negative); RBC Urine >75 /hpf (0-2); Specific Grav Ur 1.009 (1.001-1.035); Squamous Epithelial Cell Urine Rare /hpf (Few); Urobilinogen Urine Negative mg/dL (<2.0); WBC Urine 16-20 /hpf
[2020-07-29 16:05] LABS: Creatinine Urine 12.1 mg/dL
[2020-07-29 16:19] LABS: Sodium Urine Random 156 meq/L
[2020-07-29 16:25] LABS: Total Protein Urine Random 330 mg/dL; Ur Ttl Prot Creatinine Ratio 27.27 mg/mg (0-0.20)
[2020-07-29] MEDS: NOREPINEPHRINE 8 MG/D5W 250 ML 8 MG/250 ML BAG 41.25 MG IV CONT (16:34)
[2020-07-29 17:26] LABS: Glucose Point of Care 191 (65-105)
[2020-07-29] MEDS: HYDROCORTISONE SODIUM SUCCINATE 100 MG/2 ML VIAL IV PUSH ×2 (17:26→23:00)
[2020-07-29] MEDS: ALBUTEROL SULFATE NEB 2.5 MG/0.5 ML INH INHALATION (19:22)
[2020-07-29] MEDS: NOREPINEPHRINE 8 MG/D5W 250 ML 8 MG/250 ML BAG 28.13 MG IV CONT (22:43)
[2020-07-29] MEDS: DOPamine 400 MG/D5W 250 ML 400 MG/250 ML BAG 33.12 MG IV CONT (22:43)
[2020-07-29] MEDS: SODIUM BICARBONATE 8.4% 50 MEQ/50 ML SYRINGE 100 MEQ IV PUSH (22:47)
[2020-07-29 22:53] LABS: Alveolar/Arterial O2 Gradient 111.2 mmHg; Base Excess ABG -16.8 mEq/l (+/-2.0); Fractional Inspired Oxygen 32 %; HCO3 ABG 11.2 mEq/l (22.0-26.0); Oxygen Content ABG 16.4 %vol (16.0-22.0); Oxygen Saturation ABG 91.4 % (95.0-100.0); Oxyhemoglobin 92.2 % THb (90.0-100.0); PCO2 ABG 33.9 mmHg (35.0-45.0); PO2 ABG 77.3 mmHg (80.0-100.0); PO2 FiO2 Ratio Arterial Blood 2.42 %; Total Hemoglobin 12.6 g/dL (12.0-18.0)
[2020-07-29 22:55] LABS: Device NASAL CANNULA; Site Drawn ARTLINE; pH ABG 7.137 (7.350-7.450)
[2020-07-29 23:14] LABS: Glucose Point of Care 193 (65-105)
[2020-07-29 23:27] LABS: Anion Gap 22 mmol/L (8-16); Blood Urea Nitrogen 70 mg/dL (9-20); Calcium 6.7 mg/dL (8.4-10.2); Carbon Dioxide 14 mmol/L (22-30); Chloride 91 mmol/L (98-107); Estimated CRCL calculation 10 ml/min; Estimated Glomerular Filt Rate 7; Glucose 175 mg/dL (75-110); Lactic Acid Reflex 8.7 mmol/L (0.7-2.1); Magnesium 2.4 mg/dL (1.6-2.3); Phosphorus 10.6 mg/dL (2.5-4.5); Sodium 127 mmol/L (137-145)
[2020-07-30] VITALS (11 sets, daily range): BP systolic 52–107; BP diastolic 25–95; PULSE 66–99; RESP 10–16; TEMP 36.4–36.6; O2SAT 72–98
[2020-07-30] MEDS: SODIUM BICARBONATE 8.4% 50 MEQ/50 ML VIAL 100 MEQ IV PUSH (00:02)
[2020-07-30] MEDS: DEXTROSE 50% 25 GM/50 ML SYRINGE IV PUSH (00:03)
[2020-07-30] MEDS: INSULIN HUMAN REGULAR (*BKC) 100 UNITS/ML 10 UNITS IV PUSH (00:03)
[2020-07-30] MEDS: ALBUTEROL SULFATE NEB 2.5 MG/0.5 ML INH 15 MG INHALATION (00:10)
[2020-07-30] MEDS: CALCIUM GLUC 1,000 MG/NS 50 ML 1,000 MG/50 ML BAG 100 MG IVPB (00:10)
[2020-07-30 02:09] LABS: Reflex Lactic Acid Yes or No Add Lactic
[2020-07-30] MEDS: MORPHINE SULFATE (*CRX) 4 MG/ML INJ IV PUSH (02:10)
[2020-07-30] MEDS: CENTRAL LINE FLUSH 10 ML IV PUSH ×2 (02:27→13:25)
[2020-07-30] MEDS: LORazepam INJ (*CRX) 2 MG/ML VIAL IV PUSH ×5 (02:37→13:05)
[2020-07-30] MEDS: MORPHINE SULFATE (*CRX) 2 MG/ML INJ IV PUSH ×9 (02:44→13:05)
--- NOTE | 2020-07-30 05:34 | PM.EVENT ---
Event Note Event Note Event Note: Patient was on 4 pressors and not doing well, on BiPAP as well. Lab work showed acidemia 7.137, lactic acid up to 8.7, potassium to 6. Patient is too critically ill for dialysis and with his impending family was called in to see him. The decided on comfort care measures. BiPAP was removed, pressors discontinued. Patient is given Ativan and morphine as needed and comfort care measures initiated.
--- NOTE | 2020-07-30 15:49 | P.DN_ITS ---
Discharge Sum: Prov Provider Primary care physician: Yoel Fallon DO Admitting provider: Betsey Hubbard MD Consults: 07/29/20 Consult to Physician Routine Comment: Consulting Provider: Teodoro Jain body recall instructor/MD group to consult: Nephrology on-call Reason for consultation: anuria, possibly needing dialysis in future Has provider been notified: Yes Discharge Sum: Summary Date and Time Date of admission: 07/28/20 19:10 Date of : 07/30/20 Time of : 13:47 Summary Details: Patient was on 4 pressors and not doing well, on BiPAP as well. Lab work showed acidemia 7.137, lactic acid up to 8.7, potassium to 6. Patient is too critically ill for dialysis and with his impending family was called in to see him. The decided on comfort care measures. BiPAP was removed, pressors discontinued. Patient is given Ativan and morphine as needed and comfort care measures initiated. On 07/30 at 13:47 patient . Additional Data Confirmation of as documented by pronouncing clinician: no pulse, no respirations, no heart sounds and pupils fixed and dilated Family: not available Attending/PCP notified?: Yes Attending physician: Betsey Hubbard MD Was code activated?: No Autopsy requested?: No district medical examiner notified?: Yes Organ bank notified?: Yes Advance directives: No Hospice patient?: No
--- NOTE | 2020-10-01 15:24 | P.PNIM_ITS ---
Progress Note: A&P Assessment and Plan (1) Hypotension: Code(s): I95.9 - Hypotension, unspecified Status: Acute Assessment and Plan: 07/29/2020 Patient was on 4 pressors and not doing well, on BiPAP as well. Lab work showed acidemia 7.137, lactic acid up to 8.7, potassium to 6. he was critically ill and may not be able to tolerate dialysis, plan was to transfer the patient, however patient came and saw the patient and made him comfort care and patient was not transferred. Subjective Date/time seen: 07/29/2020 Patient was on 4 pressors and not doing well, on BiPAP as well. Lab work showed acidemia 7.137, lactic acid up to 8.7, potassium to 6. he was critically ill and may not be able to tolerate dialysis, plan was to transfer the patient, however patient came and saw the patient and made him comfort care and patient was not transferred. Review of Systems Review of Systems: ROS unobtainable: Yes unobtainable due to medical condition Exam 2 Narrative: Exam Narrative: Patient is comfortable, NAD HEENT: eyes are clear and none icteric LUNGS: Normal respiratory effort ABD: Moderately obese Lower extremities: edema SKIN: nonjaundiced Neuro: Somnolent. Objective Data Meds/Results Radiology Results: ITS Impressions Abdomen/Pelvis CT 07/28/20 14:50 IMPRESSION: Chemoembolization of left hepatic hepatocellular carcinoma by clinical history Cirrhosis, splenomegaly Cholelithiasis Moderate ascites Diverticulosis of the colon Mild infrarenal abdominal aortic aneurysm Head CT 07/28/20 14:55 IMPRESSION: 1. No acute intracranial findings. 2. Chronic age related findings. Chest X-Ray 07/29/20 07:14 IMPRESSION: 1. Severe emphysema with chronic scarring at the left upper lung zone. Renal Ultrasound 07/29/20 14:25 IMPRESSION: 1. Mild bilateral renal cortical thinning. No hydronephrosis. 2. Cirrhosis, small to moderate ascites. 3. Mild splenomegaly. Quality VTE Prophylaxis VTE prophylaxis: mechanical ordered
== END 2020-07-30 13:47 | disposition expired | DRG 871 ==
LOC: ANHED 13:34 → ANHICU 19:30
PROVIDERS: Internal Medicine; Internal Medicine Nephrology; Physician Assistant; Student in an Organized Health Care Education/Training Program; Admitting Provider Family Medicine; Emergency Provider Emergency Medicine; PCP Internal Medicine; Visit Provider Family Medicine
DX: A41.9 Sepsis, unspecified organism (principal); R65.21 Severe sepsis with septic shock; K76.7 Hepatorenal syndrome; K65.2 Spontaneous bacterial peritonitis; N17.9 Acute kidney failure, unspecified; E87.2 Acidosis; C22.0 Liver cell carcinoma; J96.11 Chronic respiratory failure with hypoxia; Z86.19 Personal history of other infectious and parasitic diseases; K74.60 Unspecified cirrhosis of liver; E11.9 Type 2 diabetes mellitus without complications; E87.5 Hyperkalemia; D64.9 Anemia, unspecified; R00.1 Bradycardia, unspecified; J43.9 Emphysema, unspecified; M19.90 Unspecified osteoarthritis, unspecified site; F41.8 Other specified anxiety disorders; K21.9 Gastro-esophageal reflux disease without esophagitis; E78.5 Hyperlipidemia, unspecified; G47.33 Obstructive sleep apnea (adult) (pediatric); I25.10 Atherosclerotic heart disease of native coronary artery without angina pectoris; Z89.022 Acquired absence of left finger(s); Z95.1 Presence of aortocoronary bypass graft; Z87.891 Personal history of nicotine dependence; Z66 Do not resuscitate
CPT/HCPCS: 36415; 36556; 36600; 51701; 70450; 71045; 74176; 76775; 80048; 80053; 81001; 82140; 82533; 82550; 82570; 82803; 82805; 83036; 83605; 83690; 83735; 84100; 84156; 84300; 85025; 85027; 85055; 85610; 85730; 85999; 87040; 87086; 93005; 94002; 94640; 96361; 96365; 96367; 96372; 96375; 99291; A9270; C1751; J0282; J0610; J0692; J1265; J1720; J1815; J1956; J2060; J2270; J2354; J2370; J3370; J7030; J7040; J7060; J7070; P9047